=== PATIENT | male | born 1960 | race Caucasian/White ===

== ENCOUNTER 2017-05-07 11:04 | Inpatient (IN) | payer MEDICARE ==
[~2017-05-07] VITALS: Ht 172.7 cm; Wt 85.5 kg
[~2017-05-07 11:04] MED LIST: ACE3 PO; ADV250/50 INH; NO MEDS; PEN250 PO; PRE20 PO
--- NOTE | 2017-05-07 11:18 | ER Report ---
History and Physical Time Seen By MD: 11:17 Hx. of Stated Complaint: PATIENT STATES THAT HIS LEGS AND BELLY HAVE BECOME INCREASINGLY SWOLLEN HPI/ROS CHIEF COMPLAINT: Swelling of abdomen and jaundice. HISTORY OF PRESENT ILLNESS: 56-year-old male patient presents to emergency room with complaint of swelling in his abdomen, and jaundice. Patient states that he has been 4 weeks. He states that he does have a history of drinking significant amounts of alcohol. He states typically he's been drinking approximately a pint of whiskey a day. He states that when he noticed that he was jaundiced he decrease that to 1/2 pint of whiskey a day. He states is also no significant amounts swelling to his abdomen as well as his lower legs. Patient states that he has been in the hospital previously for the same condition, at that time he spent approximately one week in the hospital. Patient states that he has tried singular from alcohol but states it is very difficult was unable to. Patient states these have some diarrhea. He denies having any nausea, vomiting. He states that he has been drinking less due to the swelling but has noted that his urine is decreased as well. REVIEW OF SYSTEMS: Respiratory: No cough, no dyspnea. Cardiovascular: No chest pain, no palpitations. Gastrointestinal: As noted above Musculoskeletal: No back pain. Allergies: Coded Allergies: No Known Drug Allergies (Verified , 05/07/17) Home Meds Reported Medications Vit D3/Folic Acid/B2/B6/B12 (FOLGARD TABLET) 1 Each Tablet, 2000 UNIT PO 05/07/17 Vit B Complex 100 Cmb #2/Herbs (SM NATURAL BALANCED B-100 TAB) 100 Mg Tablet, 100 MG PO 05/07/17 Vit B Cmplx & C#11/Ca/Dha/Q10 (BRAIN FHZTI-KIM-SQ Q10 TABLET) 1 Each Tablet, 1 EACH PO 05/07/17 Aspirin (ASPIR 81) 81 Mg Tablet.dr, 81 MG PO QDAY, TAB 05/07/17 Metoprolol Succinate (METOPROLOL SUCCINATE) 50 Mg Tab.er.24h, 100 TAB PO QDAY, TAB 05/07/17 Lisinopril (LISINOPRIL) 20 Mg Tablet, 20 MG PO QDAY, TAB 05/07/17 Furosemide (FUROSEMIDE) 20 Mg Tablet, 1 TAB PO DAILY, TAB 05/07/17 Levothyroxine Sodium (LEVOTHYROXINE SODIUM) 25 Mcg Tablet, 25 MCG PO QDAY 05/07/17 Pantoprazole Sodium (PANTOPRAZOLE SODIUM) 40 Mg Tablet.dr, 40 MG PO QDAY, TAB.SR 05/07/17 Spironolactone (SPIRONOLACTONE) 25 Mg Tablet, 25 MG PO DAILY, TAB 05/07/17 Salmeterol Xinaf/Fluticasone (Advair 250/50 Diskus) 250 Mcg/50 Mcg Inh, 1 PUFF INH BID 1 PUFF 06/26/11 Past Medical/Surgical History Patient has a past medical history of hyperlipidemia, enlarged heart, reflux, liver disease, hypothyroidism, A. fib, dermatitis, alcohol use. Patient has surgical history of pacemaker, appendectomy. Reviewed Nurses Notes: Yes Hx Smoking: Yes (12-34PPD) Hx Substance Use Disorder: No Hx Alcohol Use: Yes (OCCASIONALLY) Constitutional Vital Sign - Last 24 Hours 05/07/17 05/07/17 05/07/17 05/07/17 11:04 11:09 11:13 11:30 Temp 98.1 Pulse ??? 79 Resp 19 B/P (MAP) 116/78 (91) 116/78 111/69 (83) Pulse Ox 96 O2 Delivery Room Air 05/07/17 05/07/17 05/07/17 05/07/17 11:34 11:39 12:00 12:09 Pulse 81 79 85 Resp 17 18 14 B/P (MAP) 91/55 (67) Pulse Ox 94 95 96 05/07/17 05/07/17 05/07/17 05/07/17 12:30 12:39 13:00 13:09 Pulse 82 78 Resp 14 16 B/P (MAP) 96/58 (71) 86/76 (79) Pulse Ox 94 92 05/07/17 13:14 Pulse 81 Resp 28 Pulse Ox 94 Physical Exam General Appearance: The patient is alert, has no immediate need for airway protection and no current signs of toxicity. ENT: Tympanic membranes are pearly-ramirez, auditory canals are patent, mixed mucous membranes are moist. Patient is jaundiced in the sclera of his eye, as well as mucous membranes. Respiratory: Chest is non tender, lungs are clear to auscultation. Cardiac: regular rate and rhythm Gastrointestinal: Abdomen is distended, firm in the bilateral lower quadrants and non tender, no masses, bowel sounds normal. Musculoskeletal: Neck: Neck is supple and non tender. Extremities have full range of motion and are non tender. Skin: No rashes or lesions. Patient is obviously jaundiced most notably around his eyes, and in his mouth. DIFFERENTIAL DIAGNOSIS: After history and physical exam differential diagnosis was considered for alcoholic induced cirrhosis, liver failure, hepatorenal syndrome. Medical Decision Making Data Points Result Diagram: 05/07/17 1208 05/07/17 1130 Laboratory Hematology Test 05/07/17 11:30 05/07/17 12:08 05/07/17 13:21 Sodium Level 133 mmol/L (137-145) Potassium Level 4.3 mmol/L (3.5-5.0) Chloride Level 102 mmol/L (98-107) Carbon Dioxide Level 21 mmol/L (22-30) Blood Urea Nitrogen 22 mg/dl (9-21) Creatinine 1.00 mg/dl (0.66-1.25) Glomerular Filtration Rate Calc > 60.0 Random Glucose 99 mg/dl (75-110) Calcium Level 8.7 mg/dl (8.4-10.2) Total Bilirubin 22.0 mg/dl (0.2-1.3) Aspartate Amino Transf (AST/SGOT) 185 U/L (0-35) Alanine Aminotransferase (ALT/SGPT) 92 U/L (0-56) Alkaline Phosphatase 399 U/L (0-126) Troponin I < 0.012 ng/ml Total Protein 7.8 gm/dl (6.3-8.2) Albumin 3.1 g/dl (3.5-5.0) Red Blood Count 3.78 M/uL (4.00-5.60) Mean Corpuscular Volume 104.6 fL (80.0-96.0) Mean Corpuscular Hemoglobin 36.0 pg (26.0-33.0) Mean Corpuscular Hemoglobin Concent 34.5 g/dL (32.0-36.0) Red Cell Distribution Width 14.5 % (11.5-14.5) Mean Platelet Volume 8.4 fL (7.2-11.1) Neutrophils (%) (Auto) 69.5 % (39.4-72.5) Lymphocytes (%) (Auto) 18.3 % (17.6-49.6) Monocytes (%) (Auto) 11.1 % (4.1-12.4) Eosinophils (%) (Auto) 0.5 % (0.4-6.7) Basophils (%) (Auto) 0.6 % (0.3-1.4) Nucleated RBC Relative Count (auto) 0.0 /100WBC Neutrophils # (Auto) 7.0 K/uL (2.0-7.4) Lymphocytes # (Auto) 1.8 K/uL (1.3-3.6) Monocytes # (Auto) 1.1 K/uL (0.3-1.0) Eosinophils # (Auto) 0.0 K/uL (0.0-0.5) Basophils # (Auto) 0.1 K/uL (0.0-0.1) Nucleated RBC Absolute Count (auto) 0.00 K/uL Peripheral Blood Smear Yes Y/N B-Type Natriuretic Peptide 142 pg/ml (0-100) Ammonia 34 UMOL/L (9-33) Chemistry Test 05/07/17 11:30 05/07/17 12:08 05/07/17 13:21 Glomerular Filtration Rate Calc > 60.0 Calcium Level 8.7 mg/dl (8.4-10.2) Total Bilirubin 22.0 mg/dl (0.2-1.3) Aspartate Amino Transf (AST/SGOT) 185 U/L (0-35) Alanine Aminotransferase (ALT/SGPT) 92 U/L (0-56) Alkaline Phosphatase 399 U/L (0-126) Troponin I < 0.012 ng/ml Total Protein 7.8 gm/dl (6.3-8.2) Albumin 3.1 g/dl (3.5-5.0) White Blood Count 10.1 k/uL (4.5-11.0) Red Blood Count 3.78 M/uL (4.00-5.60) Hemoglobin 13.6 g/dL (14.0-18.0) Hematocrit 39.6 % (42.0-52.0) Mean Corpuscular Volume 104.6 fL (80.0-96.0) Mean Corpuscular Hemoglobin 36.0 pg (26.0-33.0) Mean Corpuscular Hemoglobin Concent 34.5 g/dL (32.0-36.0) Red Cell Distribution Width 14.5 % (11.5-14.5) Platelet Count 90 K/uL (150-450) Mean Platelet Volume 8.4 fL (7.2-11.1) Neutrophils (%) (Auto) 69.5 % (39.4-72.5) Lymphocytes (%) (Auto) 18.3 % (17.6-49.6) Monocytes (%) (Auto) 11.1 % (4.1-12.4) Eosinophils (%) (Auto) 0.5 % (0.4-6.7) Basophils (%) (Auto) 0.6 % (0.3-1.4) Nucleated RBC Relative Count (auto) 0.0 /100WBC Neutrophils # (Auto) 7.0 K/uL (2.0-7.4) Lymphocytes # (Auto) 1.8 K/uL (1.3-3.6) Monocytes # (Auto) 1.1 K/uL (0.3-1.0) Eosinophils # (Auto) 0.0 K/uL (0.0-0.5) Basophils # (Auto) 0.1 K/uL (0.0-0.1) Nucleated RBC Absolute Count (auto) 0.00 K/uL Peripheral Blood Smear Yes Y/N B-Type Natriuretic Peptide 142 pg/ml (0-100) Ammonia 34 UMOL/L (9-33) EKG/Imaging EKG Interpretation 12 lead EKG: Rhythm: normal sinus rhythm with a ventricular rate of 79 bpm. [place]: Right axis deviation QRS: Left bundle branch block ST segments: normal Imaging Examination: CHEST PA AND LAT Comparison: None. History: swelling Findings: Pacemaker/AICD. Cardiac silhouette size is within normal limits. No consolidation or nodule. No pneumothorax, edema, or effusion. Osseous structures are intact. IMPRESSION: No evidence of acute cardiopulmonary disease. Report Dictated By: Kevin Lima MD at 05/07/2017 12:44 PM Report E-Signed By: Kevin Lima MD at 05/07/2017 12:45 PM ED Course/Re-evaluation ED Course Patient was admitted to exam room, history of physical or obtained. Differential diagnoses were considered. On examination patient is jaundiced with distended abdomen. A CBC, CMP, EKG, troponin, chest x-ray were done. Patient had an elevated bilirubin of 22, CBC was unremarkable except for MCV was 104, AST was 152. Chest x-ray, troponin were unremarkable. EKG showed a normal sinus rhythm with a left bundle branch block. I discussed case with Dr. Grimes, hospitalist, who agreed to accept the patient for admission. I discussed this patient who verbalized understanding and agreement. Patient was given normal saline and tolerated well. I did ask the patient and his last drink was, he stated that was this morning with his medication. Ammonia was done and it was 34. Decision to Disposition Date: May 07, 2017 Decision to Disposition Time: 13:17 Depart Departure Latest Vital Signs Vital Signs Date Time Temp Pulse Resp B/P (MAP) Pulse Ox O2 Delivery O2 Flow Rate FiO2 05/07/17 13:14 81 28 94 05/07/17 13:00 86/76 (79) 05/07/17 11:13 98.1 Room Air Impression: Primary Impression: Alcoholic cirrhosis of liver Additional Impression: Jaundice Condition: Improved Disposition: Admitted from ER Problem Qualifiers Primary Impression: Alcoholic cirrhosis of liver Ascites presence: with ascites Qualified Codes: K70.31 - Alcoholic cirrhosis of liver with ascites RAQUEL SCHOFIELD May 07, 2017 11:18
[2017-05-07] MEDS ORDERED: FURO-45 PO (11:28)
[2017-05-07] MEDS ORDERED: VIT1TABL PO (11:28)
[2017-05-07] MEDS ORDERED: VIT1TABL4 PO (11:28)
[2017-05-07] MEDS ORDERED: METO50TA19 PO (11:28)
[2017-05-07] MEDS ORDERED: PANT40TA65 PO (11:28)
[2017-05-07] MEDS ORDERED: [UNRECOGNIZED DRUG - CODE] PO (11:28)
[2017-05-07] MEDS ORDERED: SPIR25TA78 PO (11:28)
[2017-05-07] MEDS ORDERED: LEVO25TA61 PO (11:28)
[2017-05-07] MEDS ORDERED: LISI20TA29 PO (11:28)
[2017-05-07] MEDS ORDERED: ASPI-1471 PO (11:28)
--- NOTE | 2017-05-07 11:48 | EKG ---
FACILITY: [facility] - [place] PATIENT NAME: AMANDA BROWN : [id number] MR: [id number] V: [id number] EXAM DATE: ORDERING PHYSICIAN: RAQUEL SCHOFIELD TECHNOLOGIST: Test Reason : Blood Pressure : / mmHG Vent. Rate : 079 BPM Atrial Rate : 079 BPM P-R Int : 170 ms QRS Dur : 142 ms QT Int : 448 ms P-R-T Axes : 005 092 016 degrees QTc Int : 513 ms Normal sinus rhythm Rightward axis Left bundle branch block Abnormal ECG Confirmed by BESSY HERNANDEZ ([id number]) on 05/09/2017 2:56:56 PM Referred By: Confirmed By:BESSY HERNANDEZ
[2017-05-07 12:14] LABS: PLATELET COUNT, AUTOMATED 90 K/uL (150-450)
--- NOTE | 2017-05-07 12:50 | RADIOLOGY IMAGING REPORT ---
FACILITY: [facility] PATIENT NAME: Manuel Peters : 1960 MR: [id number] V: [id number] EXAM DATE: ORDERING PHYSICIAN: RAQUEL SCHOFIELD TECHNOLOGIST: Location: [facility] Patient: Manuel Peters : 1960 Visit/Account:[id number] Date of Sevice: 05/07/2017 Examination: CHEST PA AND LAT Comparison: None. History: swelling Findings: Pacemaker/AICD. Cardiac silhouette size is within normal limits. No consolidation or nodule . No pneumothorax, edema, or effusion. Osseous structures are intact. IMPRESSION: No evidence of acute cardiopulmonary disease. Report Dictated By: Kevin Lima MD at 05/07/2017 12:44 PM Report E-Signed By: Kevin Lima MD at 05/07/2017 12:45 PM [id number]
[2017-05-07 14:24] VITALS: BP 104/58
[2017-05-07] MEDS ORDERED: IBUPROFEN 200 MG TAB PO PRN (16:25)
[2017-05-07] MEDS ORDERED: ONDANSETRON 4 MG/2 ML VIAL IVP PRN (16:25)
[2017-05-07] MEDS ORDERED: FLUSH 10 ML SYR IVP PRN (16:25)
[2017-05-07 16:39] LABS: INR 1.66
[2017-05-07] MEDS ORDERED: NS(*) 0.9% 1000 ML BAG 1,000 ML ONE (17:48)
--- NOTE | 2017-05-07 18:33 | Procedure Note ---
Paracentesis Procedure Note Reason for Paracentesis: Ascites Consent Signed: Yes Paracentesis Location: RLQ U/S Guided Paracentesis: Yes Blood Loss: Minimal Complications: None Anesthesia Used: Other (2% Lidocaine) CC's of Anesthesia: 10 Amount of Fluid - cc's: 6000 Fluid Characteristics: Serous Lab Analysis Ordered: No (discussed with Dr. Grimes) Comment Pre-procedure INR 1.66 noted. Decision to continue with procedure with slight increased risk of bleeding. NIBP monitored with RN in room throughout the procedure. PATITO SHELDON MD May 07, 2017 18:33
[2017-05-07 19:00] VITALS: BP 104/53
[2017-05-07] MEDS: LACTULOSE 10 GM/15 ML UDCUP PO SCH (19:23)
[2017-05-07 20:00] VITALS: BP 94/52
[2017-05-07 20:35] VITALS: Ht 172.7 cm; Wt 85.5 kg
[2017-05-07 20:42] VITALS: BP 102/60
--- NOTE | 2017-05-07 20:49 | Medical Nutrition Therapy ---
Nutrition Anthropometrics Height (Inches): 68.00 Height (Calculated Centimeters: 172.861031 Weight (Pounds): 202 Weight (Calculated Kilograms): 91.626 BMI Calculated: 30.71 Michael Nutrition Score: Adequate Michael Nutrition Risk Score: 17 Dietary Referral Nutrition Risk Factors: Nutrition Risk Comment: Physical Findings Physical Appearance: Obese BMI 30-39 Skin Appearance Skin Appearance: Edema Edema Location Modifier: Both Edema Location: ABDOMINAL Type of Edema: Degree of Edema: 3+ Gastrointestinal Symptoms GI Symtoms: Diarrhea Tube Present: Bowel Sounds: Recent Bowel Pattern: Diarrhea Stool Characteristics: Nutrition/Food History Alcohol Use: Currently Amount of Alcohol Used: 1 pint whiskey/day Nutritional Diagnosis Nutritional Risk Acuity 2: Liver Cirrhosis Nutritional Risk Acuity 3: Alcohol abuse Past Medical History: hyperlipidemia, enlarged heart, reflux, liver disease, hypothyroidism, A. fib, dermatitis, alcohol use, pacemaker, appendectomy. Nutritional Acuity: 2-Moderate Nutrition Diagnosis: Excessive Alcohol Intake Nutrition Problem/Etiology/Sym: Excessive Alcohol Intake related to Alcohol addiction AEB diagnosis of liver disease and reports of patient's daily alcohol intake of 1 pint whiskey. Energy Requirement: 2400 ([place] Jeor: Actual BW X 1.5) Protein Requirement: 73 (Actual BW Kg X .8) Diet Type: 2 Gram Sodium (NA), Low Cholesterol & Sat Fat Nutrition Intervention: Cont diet as ordered Drug: Diuretics Nutrition Monitoring & Eval Nutrition Goals: Eat 75-100% Meal RD Patient Assessment Time: [address] Assessment Type: RD Assessment Patient Nutrition Acuity: 2-Moderate Follow Up Date: May 09, 2017 Nutritional Comment: Pt admitted for Alcoholic cirrhosis of liver and jaundice. Class I obesity with BMI of 30.7. Pt admitted with ascites, as this condition resolves wt is expected to decrease. Low H/H, Alb 3.1, BNP 142, Ammonia 34, Total Bilirubin 22.0, High AST/ALT/ALK Phos. Receiving Low chol, Low Sat Fat, 2 gr Na+ diet with no reports of intake. Follow diet tolerance, labs, wt. etc. KESHAV LATHAM May 07, 2017 20:49
--- NOTE | 2017-05-07 20:53 | History & Physical ---
History of Present Illness Chief Complaint Worsening swelling of his abdomen and legs History of Present Illness Mr. Peters is 56-year-old male patient presents to emergency room with complaint of swelling in his abdomen, and jaundice. Patient stated that he has been having this for the last 4 weeks. He stated that he did have a history of drinking significant amounts of alcohol. He stated typically he's been drinking approximately a pint of whiskey a day. He stated that when he noticed that he was jaundiced he decrease that to 1/2 pint of whiskey a day. He stated he also noticed significant amounts swelling to his abdomen as well as his lower legs. Patient stated that he has been in the hospital previously for the same condition, at that time he spent approximately one week in the hospital. Patient stated that he has tried stopping from alcohol but stated it was very difficult and unable to stop it. Patient stated he had some diarrhea. He denied having any nausea, vomiting. He stated that he has been drinking less due to the swelling but has noted that his urine is decreased as well. During the ER evaluation differential diagnoses were considered. On examination patient was jaundiced with distended abdomen. A CBC, CMP, EKG, troponin, chest x -ray were done. Patient had an elevated bilirubin of 22, CBC was unremarkable except for MCV was 104, AST was 152. Chest x-ray, troponin were unremarkable. EKG showed a normal sinus rhythm with a left bundle branch block. These findings were discussed with the patient by the ER-MD and pt. verbalized understanding and agreement. Patient was given normal saline and tolerated well. His last alcohol drink was yesterday. His Ammonia was done and it was 34. I discussed the case with the ER-MD and admitted the patient for further evaluation and management. I also discussed the case with the surgeon, and requested Paracethesis and he aspirated almost 6L of ascitic fluid. Patient tolerated the procedure well. Patient felt better. History Home Meds Reported Medications Vit D3/Folic Acid/B2/B6/B12 (FOLGARD TABLET) 1 Each Tablet, 2000 UNIT PO 05/07/17 Vit B Complex 100 Cmb #2/Herbs (SM NATURAL BALANCED B-100 TAB) 100 Mg Tablet, 100 MG PO 05/07/17 Vit B Cmplx & C#11/Ca/Dha/Q10 (BRAIN CJDGG-EIP-YD Q10 TABLET) 1 Each Tablet, 1 EACH PO 12/29/17 Aspirin (ASPIR 81) 81 Mg Tablet.dr, 81 MG PO QDAY, TAB 05/07/17 Metoprolol Succinate (METOPROLOL SUCCINATE) 50 Mg Tab.er.24h, 100 TAB PO QDAY, TAB 05/07/17 Lisinopril (LISINOPRIL) 20 Mg Tablet, 20 MG PO QDAY, TAB 05/07/17 Furosemide (FUROSEMIDE) 20 Mg Tablet, 1 TAB PO DAILY, TAB 05/07/17 Levothyroxine Sodium (LEVOTHYROXINE SODIUM) 25 Mcg Tablet, 25 MCG PO QDAY 05/07/17 Pantoprazole Sodium (PANTOPRAZOLE SODIUM) 40 Mg Tablet.dr, 40 MG PO QDAY, TAB.SR 05/07/17 Spironolactone (SPIRONOLACTONE) 25 Mg Tablet, 25 MG PO DAILY, TAB 05/07/17 Salmeterol Xinaf/Fluticasone (Advair 250/50 Diskus) 250 Mcg/50 Mcg Inh, 1 PUFF INH BID 1 PUFF 06/26/11 Allergies: Coded Allergies: No Known Drug Allergies (Verified , 05/07/17) Hx Smoking: Yes (05/11-07/11PPD) Hx Alcohol Use: Yes Alcohol Used: Liquor Alcohol Withdrawl Symptoms: Tremors Hx Substance Use Disorder: No Social Drug Use: Former Review of Systems Constitutional: Weight Gain, No Fever, No Weight Loss, No Chills Neurological: Weakness, No Syncope, No Confusion, No Dizziness Eyes: Other (Jaundice), No Vision Change ENT: No Sinus Congestion, No Sore Throat Cardiovascular: No Chest Pain, No Palpitations Respiratory: Shortness of Breath, No Cough, No Wheezing Gastrointestinal: Nausea, No Vomiting, Diarrhea, No Dysphagia, No Constipation , No Early Satiety, No Hematemesis, No Hematochezia, No Melena, Abdominal Pain Genitourinary: Dysuria, No Hematuria Musculoskeletal: No Pain, No Sprain, No Strain Psychiatric: Depression, No Anxiety Exam Vital Signs Vital Signs Date Time Temp Pulse Resp B/P (MAP) Pulse Ox O2 Delivery O2 Flow Rate FiO2 05/07/17 19:45 95 Room Air 05/07/17 14:24 99.2 77 20 104/58 (73) General Appearance: Alert, Awake, Afebrile, Other (moderate abdominal distension) Neuro: No Gross deficits Eyes: PERRLA (icteric sclera) ENT: Other (dry oral mucosa) Neck: No Masses Cardiovascular: Normal Rhythm & Peripheral Pulses Respiratory: No Respiratory Distress Chest: No Masses GI: Other (distended abdomenwith ascites) : Normal Extremities: Soft and Non Tender, Edema Integumentary: Jaundice, Pallor Psych: Alert & Oriented X3, Other (seems depressed) Medical Decision Making Data Points Result Diagram: 05/07/17 1208 05/07/17 1130 EKG / Imaging Imaging reviewed Pre-Admit Course ED Medications reviewed Medical Record Review: Yes Assessment and Plan Problems: (1) Alcoholic cirrhosis of liver Status: Acute Assessment & Plan: Patient has Alcoholic related Liver Disease. He has generalized anasarca and large ascites. Surgical consult obtained by Dr. Bateman and paracenthesis was performed and 6L ascitic fluid was removed. Patient tolerated. I will watch his hemodynamics and hold Lasix for now. I will get U/A for his dysuria and frequency. I will start Lasix and Aldactone in am after stabilizing his BP. I will use Lactulose 30ml po q12h for his high Bilirubin. (2) Fluid overload Status: Acute Assessment & Plan: He underwent paracethesis and 6L was removed. I will start Lasix and Aldactone in am for his LE edema. I will get morning blood work. I will managemhis other medical issues accordingly and resume his home medications. For DVT his INR is 1.6 and he is on ASA 81mg Central Venous Access Medical Necessity for Access: Hemodynamic Monitoring, IV Access, Medication Administration Condition guarded Time Spent on Plan of Care: > 30 min Consult Surgery Copies to: DARRELL CUNNINGHAM MD Venous Thromboembolism VTE Risk Physician Assess for VTE Risk: Yes Patient's VTE Risk: Low VTE Diagnostic Test 2 Days Prior to Admit: No Antithrombotics Is Pt On Any Antithrombotics?: No Exam Sepsis Risk: No Definite Risk Problem Qualifiers (1) Alcoholic cirrhosis of liver: Ascites presence: with ascites Qualified Codes: K70.31 - Alcoholic cirrhosis of liver with ascites RENA FOURNIER MD May 07, 2017 20:53
[2017-05-07] MEDS: FUROSEMIDE 40 MG/4 ML VIAL IVP SCH (21:00)
--- NOTE | 2017-05-07 21:00 | RADIOLOGY IMAGING REPORT ---
FACILITY: [facility] [place] PATIENT NAME: Manuel Peters : 1960 MR: [id number] V: [id number] EXAM DATE: ORDERING PHYSICIAN: RENA FOURNIER TECHNOLOGIST: Location: [facility] [place] Patient: Manuel Peters : 1960 Visit/Account:[id number] Date of Sevice: 05/07/2017 US GUIDANCE FOR THORA/PARA History: Abdominal distention COMPARISON: None Findings: Limited ultrasound of the abdomen demonstrates moderate ascites. Images were obtained for g uidance performed by the primary clinical service. IMPRESSION: Ultrasound images obtained for guidance for paracentesis. Report Dictated By: Max Flores MD at 05/07/2017 8:55 PM Report E-Signed By: Max Flores MD at 05/07/2017 8:56 PM [id number]
[2017-05-07] MEDS ORDERED: NS(*) 0.9% 1000 ML BAG 1,000 ML IV PRN (22:20)
[2017-05-07 22:46] VITALS: BP 109/64
[2017-05-08] VITALS (10 sets, daily range): BP systolic 80–125; BP diastolic 31–89
[2017-05-08] MEDS: LACTULOSE 10 GM/15 ML UDCUP PO SCH ×3 (01:19→14:23)
[2017-05-08] MEDS: LEVOTHYROXINE SOD 0.025 MG TAB PO SCH (05:35)
[2017-05-08] MEDS: FUROSEMIDE 40 MG/4 ML VIAL IVP SCH ×2 (07:06→21:59)
[2017-05-08] MEDS: SPIRONOLACTONE 25 MG TAB PO SCH (07:07)
[2017-05-08] MEDS: METOPROLOL SUCC XL 50 MG TABCR 50 MG TAB.ER.24H PO SCH (07:07)
[2017-05-08 07:13] LABS: PLATELET COUNT, AUTOMATED 70 K/uL (150-450)
[2017-05-08] MEDS: PANTOPRAZOLE SOD 40 MG TABEC PO SCH (09:56)
[2017-05-08] MEDS: ASPIRIN 81 MG CHEW CHEW SCH (09:56)
[2017-05-08] MEDS ORDERED: METO200T12 PO (11:58)
--- NOTE | 2017-05-08 20:16 | Hospitalist Progress Note ---
Subjective Progress Notes Subjective Mr. Peters is 56-year-old male patient presents to emergency room with complaint of swelling in his abdomen, and jaundice. Patient stated that he has been having this for the last 4 weeks. He stated that he did have a history of drinking significant amounts of alcohol. He stated typically he's been drinking approximately a pint of whiskey a day. He stated that when he noticed that he was jaundiced he decrease that to 1/2 pint of whiskey a day. He stated he also noticed significant amounts swelling to his abdomen as well as his lower legs. Patient stated that he has been in the hospital previously for the same condition, at that time he spent approximately one week in the hospital. Patient stated that he has tried stopping from alcohol but stated it was very difficult and unable to stop it. Patient stated he had some diarrhea. He denied having any nausea, vomiting. He stated that he has been drinking less due to the swelling but has noted that his urine is decreased as well. During the ER evaluation differential diagnoses were considered. On examination patient was jaundiced with distended abdomen. A CBC, CMP, EKG, troponin, chest x -ray were done. Patient had an elevated bilirubin of 22, CBC was unremarkable except for MCV was 104, AST was 152. Chest x-ray, troponin were unremarkable. EKG showed a normal sinus rhythm with a left bundle branch block. These findings were discussed with the patient by the ER-MD and pt. verbalized understanding and agreement. Patient was given normal saline and tolerated well. His last alcohol drink was yesterday. His Ammonia was done and it was 34. I discussed the case with the ER-MD and admitted the patient for further evaluation and management. I also discussed the case with the surgeon, and requested Paracethesis and he aspirated almost 6L of ascitic fluid. Patient tolerated the procedure well. Patient felt better. 05/08: Patient is feeling better and has better appetite. He is still very jaundiced. He required IVF due to his low BP. His PLT. are 70K and his LFT's are still high. Patient Complains of: Neurological: Weakness, No: Confusion, Dizziness Cardiovascular: No: Chest Pain, Palpitations Respiratory: Shortness of Breath, No: Cough, Congestion, Wheezing Gastrointestinal: No Nausea, No Vomiting Genitourinary: No Dysuria, No Hematuria Musculoskeletal: No: Pain, Sprain Physical Exam Vital Signs Date Time Temp Pulse Resp B/P (MAP) Pulse Ox O2 Delivery O2 Flow Rate FiO2 05/08/17 19:57 98.8 88 20 125/59 (81) 93 Room Air Intake and Output 05/09/17 07:00 Intake Total 2918 ml Balance 2918 ml Intake Oral 1600 ml IV Total 1318 ml # Voids 1 # Bowel Movements 2 General Appearance: Alert, Awake, No Acute Distress, Afebrile Neuro: No Gross deficits Eyes: Other (Icteric sclera) ENT: Normal Cardiovascular: Normal Rhythm & Peripheral Pulses Respiratory: No Respiratory Distress GI: Other (distended abdomen but not tender) Extremities: Edema Psych: Alert & Oriented X3, Appropriate Mood & Affect Result Diagram: 05/08/17 0633 05/08/17 0702 Assessment and Plan Problems: (1) Alcoholic cirrhosis of liver Status: Acute Assessment & Plan: Patient has Alcoholic related Liver Disease. He has generalized anasarca and large ascites. Surgical consult obtained by Dr. Bateman and paracenthesis was performed and 6L ascitic fluid was removed. Patient tolerated. I will watch his hemodynamics and hold Lasix for now. I will get U/A for his dysuria and frequency. I will start Lasix and Aldactone in am after stabilizing his BP. I will use Lactulose 30ml po q12h for his high Bilirubin. 05/08: I will continue his current management and possible d/c in am and f/u with PCP. (2) Fluid overload Status: Acute Assessment & Plan: He underwent paracethesis and 6L was removed. I will start Lasix and Aldactone in am for his LE edema. I will get morning blood work. I will managemhis other medical issues accordingly and resume his home medications. For DVT his INR is 1.6 and he is on ASA 81mg 05/08: We able to remove 6L from his belly and he feels better. He is doing better and he can go home in am. Central Venous Access Medical Necessity for Access: Hemodynamic Monitoring, IV Access, Medication Administration Time Spent on Plan of Care: < 30 min Copies to: DARRELL CUNNINGHAM MD Exam Sepsis Risk: No Definite Risk Problem Qualifiers (1) Alcoholic cirrhosis of liver: Ascites presence: with ascites Qualified Codes: K70.31 - Alcoholic cirrhosis of liver with ascites RENA FOURNIER MD May 08, 2017 20:16
[2017-05-08] MEDS ORDERED: DIAZEPAM 10 MG TAB PO PRN ×2 (20:20)
[2017-05-09 02:12] VITALS: BP 124/49
[2017-05-09] MEDS: LEVOTHYROXINE SOD 0.025 MG TAB PO SCH (05:13)
[2017-05-09 07:42] VITALS: BP 135/78
[2017-05-09] MEDS: SPIRONOLACTONE 25 MG TAB PO SCH (07:50)
[2017-05-09] MEDS: PANTOPRAZOLE SOD 40 MG TABEC PO SCH (07:50)
[2017-05-09] MEDS: FUROSEMIDE 40 MG/4 ML VIAL IVP SCH ×2 (07:50→20:50)
[2017-05-09] MEDS: ASPIRIN 81 MG CHEW CHEW SCH (07:50)
[2017-05-09] MEDS: METOPROLOL SUCC XL 50 MG TABCR 50 MG TAB.ER.24H PO SCH (07:50)
--- NOTE | 2017-05-09 10:19 | Medical Nutrition Therapy ---
Nutrition Anthropometrics Height (Inches): 68.00 Height (Calculated Centimeters: 172.373222 Weight (Pounds): 202 Weight (Calculated Kilograms): 91.626 BMI Calculated: 30.71 Michael Nutrition Score: Adequate Michael Nutrition Risk Score: 17 Dietary Referral Nutrition Risk Factors: Nutrition Risk Comment: Physical Findings Physical Appearance: Obese BMI 30-39 Skin Appearance Skin Appearance: Edema Edema Location Modifier: Both Edema Location: Lower Extremity Type of Edema: Degree of Edema: 3+ Gastrointestinal Symptoms GI Symtoms: Diarrhea Tube Present: Bowel Sounds: Recent Bowel Pattern: Diarrhea Stool Characteristics: Nutrition/Food History Decreased Appetite Improving Nutritional Diagnosis Nutritional Risk Acuity 2: Liver Cirrhosis Nutritional Risk Acuity 3: Fair Appetite, Alcohol abuse Past Medical History: hyperlipidemia, enlarged heart, reflux, liver disease, hypothyroidism, A. fib, dermatitis, alcohol use, pacemaker, appendectomy. Nutritional Acuity: 2-Moderate Nutrition Diagnosis: Excessive Alcohol Intake Nutrition Problem/Etiology/Sym: Excessive Alcohol Intake related to Alcohol addiction AEB diagnosis of liver disease and reports of patient's daily alcohol intake of 1 pint whiskey. Energy Requirement: 2400 ([place]-St Jeor: Actual BW X 1.5) Protein Requirement: 73 (Actual BW Kg X .8) Diet Type: 2 Gram Sodium (NA), Low Cholesterol & Sat Fat Nutrition Intervention: Cont diet as ordered Drug: Diuretics Nutrition Monitoring & Eval Nutrition Goals: Eat 75-100% Meal RD Patient Assessment Time: [address] Assessment Type: RD Re-Assessment Patient Nutrition Acuity: 2-Moderate Follow Up Date: May 11, 2017 Nutritional Comment: Pt admitted for Alcoholic cirrhosis of liver and jaundice. Class I obesity with BMI of 30.7. Pt admitted with ascites, as this condition resolves wt is expected to decrease. Low H/H, Alb 3.1, BNP 142, Ammonia 34, Total Bilirubin 22.0, High AST/ALT/ALK Phos. Receiving Low chol, Low Sat Fat, 2 gr Na+ diet with no reports of intake. Follow diet tolerance, labs, wt. etc. 05/09 Alb 2.2, Ammonia 87, High LFT but improving. Pt consuming diet 25-75% and states that his appetite his improving. Follow labs, intake, etc. KESHAV LATHAM May 09, 2017 10:19
[2017-05-09] MEDS: LACTULOSE 10 GM/15 ML UDCUP PO SCH ×2 (11:48→17:59)
[2017-05-09 11:49] VITALS: BP 142/75
[2017-05-09] MEDS: CEPHALEXIN MONO 500 MG CAP PO SCH ×3 (13:15→20:50)
[2017-05-09] MEDS ORDERED: THIAMINE HCL 100 MG TAB PO ONE (13:35)
--- NOTE | 2017-05-09 13:37 | Hospitalist Progress Note ---
Subjective Progress Notes Subjective This patient was admitted for ascites and hepatic failure. He had no acute changes overnight. Patient Complains of: Cardiovascular: No: Chest Pain Respiratory: No: Shortness of Breath Physical Exam Vital Signs Date Time Temp Pulse Resp B/P (MAP) Pulse Ox O2 Delivery O2 Flow Rate FiO2 05/09/17 11:49 97.7 94 20 142/75 (97) 96 Room Air 93 Intake and Output 05/10/17 07:00 Intake Total 360 ml Output Total 2 ml Balance 358 ml Intake Oral 360 ml Output Urine Total 1 ml Stool Total 1 ml # Voids 3 Neuro: Other (Tremors.) Eyes: PERRLA Cardiovascular: Regular Rate and Rhythm Respiratory: Clear to Auscultation GI: Other (Distended.) Integumentary: Jaundice Result Diagram: 05/08/17 0633 05/08/17 07 Item Value Date Time Ammonia 87 UMOL/L H 05/09/17 0605 Total Bilirubin 19.2 mg/dl *H 05/08/17 0702 Aspartate Amino Transf (AST/SGOT) 130 U/L H 05/08/17 0702 Alanine Aminotransferase (ALT/SGPT) 76 U/L H 05/08/17 0702 Alkaline Phosphatase 292 U/L H 05/08/17 0702 Assessment and Plan Problems: (1) Alcoholic cirrhosis of liver Status: Acute Assessment & Plan: He does have advanced cirrhosis. We have started him on lactulose for an elevated ammonia level. (2) Ascites Assessment & Plan: He underwent paracentesis with 6 liters removed on 05/07. He has already reaccumulated much of the fluid. He will likely need scheduled paracentesis after discharge. (3) Alcohol withdrawal Assessment & Plan: He is on CIWA protocol. Central Venous Access Medical Necessity for Access: Hemodynamic Monitoring, IV Access, Medication Administration Exam Sepsis Risk: No Definite Risk Problem Qualifiers (1) Alcoholic cirrhosis of liver: Ascites presence: with ascites Qualified Codes: K70.31 - Alcoholic cirrhosis of liver with ascites BESSY HERNANDEZ DO May 09, 2017 13:37
[2017-05-09 15:00] VITALS: BP 122/65
[2017-05-09 20:48] VITALS: BP 130/76
[2017-05-10] VITALS (7 sets, daily range): BP systolic 89–134; BP diastolic 55–81
[2017-05-10] MEDS: LACTULOSE 10 GM/15 ML UDCUP PO SCH ×3 (01:00→17:16)
[2017-05-10] MEDS: LEVOTHYROXINE SOD 0.025 MG TAB PO SCH (05:32)
[2017-05-10 07:16] LABS: PLATELET COUNT, AUTOMATED 80 K/uL (150-450)
[2017-05-10] MEDS: SPIRONOLACTONE 25 MG TAB PO SCH (08:37)
[2017-05-10] MEDS: METOPROLOL SUCC XL 50 MG TABCR 50 MG TAB.ER.24H PO SCH (10:23)
[2017-05-10] MEDS: PANTOPRAZOLE SOD 40 MG TABEC PO SCH (10:23)
[2017-05-10] MEDS: ASPIRIN 81 MG CHEW CHEW SCH (10:23)
[2017-05-10] MEDS: THIAMINE HCL 100 MG TAB PO SCH (10:23)
[2017-05-10] MEDS: CEPHALEXIN MONO 500 MG CAP PO SCH ×4 (10:23→20:58)
[2017-05-10] MEDS: FUROSEMIDE 40 MG/4 ML VIAL IVP SCH ×2 (10:24→20:58)
--- NOTE | 2017-05-10 19:19 | Hospitalist Progress Note ---
Subjective Progress Notes Subjective The patient states his abdomen is becoming tight again. Physical Exam Vital Signs Date Time Temp Pulse Resp B/P (MAP) Pulse Ox O2 Delivery O2 Flow Rate FiO2 05/10/17 16:37 98.4 78 20 120/67 (84) 97 Room Air Intake and Output 05/11/17 07:00 Intake Total 1820 ml Balance 1820 ml Intake Oral 1820 ml # Voids 4 # Bowel Movements 1 General Appearance: Alert, Awake, No Acute Distress, Afebrile Eyes: Other (Sclera are icteric.) Cardiovascular: Regular Rate and Rhythm Respiratory: Clear to Auscultation GI: Other (Distended, nontender.) Extremities: Warm, Perfused, Edema (2-3+ pitting edema, both LE.) Integumentary: Generalized Fragile Skin Psych: Appropriate Mood & Affect, Other (Poor insight into current illness.) Result Diagram: 05/10/1757 05/10/17 0657 Item Value Date Time Ammonia 62 UMOL/L H 05/10/17 0657 Thyroid Stimulating Hormone (TSH) 5.87 uIU/ml H 05/08/17 0633 Calcium Level 8.3 mg/dl L 05/10/17 0657 Total Bilirubin 18.9 mg/dl *H 05/10/17 0657 Aspartate Amino Transf (AST/SGOT) 123 U/L H 05/10/17 0657 Alanine Aminotransferase (ALT/SGPT) 80 U/L H 05/10/17 0657 Alkaline Phosphatase 299 U/L H 05/10/17 0657 Total Protein 6.7 gm/dl 05/10/17 0657 Albumin 2.6 g/dl L 05/10/17 0657 [facility] *LIVE* [address] [place] [address] CRISTIN REEDER M.D., DIRECTOR OF LABORATORY SERVICES BRUNO CHILDS M.D., PATHOLOGIST RUN DATE: 05/09/17 Specimen Inquiry Report PAGE 1 RUN TIME: 1123 PATIENT: AMANDA BROWN ACCT: [id number] LOC: MED U : [id number] AGE/SX: 56/M ROOM: 2275 REG : 05/07/[address]: RENA FOURNIER MD : [id number] BED: 275 DIS : STATUS: ADM IN TLOC: SPEC #: [id number] NAUN: 05/07/17 STATUS: COMP REQ #: [id number] RECD: 05/07/17 [facility] DR: RAQUEL SCHOFIELDP SOURCE: [facility] ENTR: 05/07/17-[address]: RENA FOURNIER MD SPDESC: ORDERED: CULT URINE Procedure Result Verified URINE CULTURE Final 05/09/17-1123 Organism 1 ESCHERICHIA COLI >100,000 COL/ML PREDOMINANT ORGANISM IN A MIXED CULTURE ESC COLI M.I.C. RX --------- --- AMPICILLIN <=2 S AMPICILLIN/SULBACTAM <=2 S CEFAZOLIN <=4 S CEFTAZIDIME <=1 S CEFTRIAXONE <=1 S CEFEPIME <=1 S CEFOXITIN <=4 S ERTAPENEM <=0.5 S CIPROFLOXACIN <=0.25 S GENTAMICIN <=1 S IMIPENEM <=0.25 S LEVOFLOXACIN <=0.12 S NITROFURANTOIN <=16 S PIPERACILLIN/TAZOBACTAM <=4 S TOBRAMYCIN <=1 S TRIMETHOPRIM/SULFAMETHOXAZOLE <=20 S END OF REPORT Assessment and Plan Problems: (1) Alcoholic cirrhosis of liver Status: Acute Assessment & Plan: He does have advanced cirrhosis. We started him on lactulose for an elevated ammonia level. He has been having multiple stools and his level has improved. He has refused his last two doses due to diarrhea. Will decrease the frequency of the lactulose and repeat an ammonia level with am labs. (2) Ascites Assessment & Plan: He underwent paracentesis with 6 liters removed on 05/07. He has already reaccumulated most of the fluid. He will likely need scheduled paracentesis after discharge for palliation. (3) Alcohol withdrawal Assessment & Plan: He was on CIWA protocol for several days but did not require dosing. CIWA discontinued. Central Venous Access Medical Necessity for Access: Hemodynamic Monitoring, IV Access, Medication Administration Time Spent on Plan of Care: < 30 min Exam Sepsis Risk: No Definite Risk Problem Qualifiers (1) Alcoholic cirrhosis of liver: Ascites presence: with ascites Qualified Codes: K70.31 - Alcoholic cirrhosis of liver with ascites MAIRA SANCHEZ MD May 10, 2017 19:19
[2017-05-11 03:43] VITALS: BP 94/49
[2017-05-11] MEDS: LEVOTHYROXINE SOD 0.025 MG TAB PO SCH (05:25)
[2017-05-11 06:33] LABS: PLATELET COUNT, AUTOMATED 71 K/uL (150-450)
[2017-05-11 06:45] LABS: INR 1.72
[2017-05-11 07:19] VITALS: BP 90/51
[2017-05-11] MEDS: LACTULOSE 10 GM/15 ML UDCUP PO SCH ×2 (08:19→17:30)
[2017-05-11] MEDS: SPIRONOLACTONE 25 MG TAB PO SCH (08:19)
[2017-05-11] MEDS: METOPROLOL SUCC XL 50 MG TABCR 50 MG TAB.ER.24H PO SCH (09:22)
[2017-05-11] MEDS: ASPIRIN 81 MG CHEW CHEW SCH (09:23)
[2017-05-11] MEDS: PANTOPRAZOLE SOD 40 MG TABEC PO SCH (09:23)
[2017-05-11] MEDS: THIAMINE HCL 100 MG TAB PO SCH (09:23)
[2017-05-11] MEDS: CEPHALEXIN MONO 500 MG CAP PO SCH ×4 (09:23→20:37)
[2017-05-11] MEDS ORDERED: SPIRONOLACTONE 25 MG TAB PO ONE (10:20)
[2017-05-11 10:30] VITALS: BP 100/55
[2017-05-11] MEDS: FUROSEMIDE 20 MG TAB PO SCH (11:11)
--- NOTE | 2017-05-11 14:46 | Hospitalist Progress Note ---
Subjective Progress Notes Subjective He reports no SOB, but that his abdomen is swelling back up. Physical Exam Vital Signs Date Time Temp Pulse Resp B/P (MAP) Pulse Ox O2 Delivery O2 Flow Rate FiO2 05/11/17 12:00 72 05/11/17 11:13 97.6 20 94 Room Air 05/11/17 10:30 100/55 (70) Intake and Output 05/12/17 07:00 Intake Total 820 ml Balance 820 ml Intake Oral 820 ml # Voids 1 # Bowel Movements 1 General Appearance: Alert, Awake, No Acute Distress GI: Soft and Non-Tender (, caput medusa, distended) Integumentary: Jaundice Result Diagram: 05/11/1760405/11/17604 Assessment and Plan Problems: (1) Alcoholic cirrhosis of liver Status: Acute Assessment & Plan: He does have advanced cirrhosis with hepatic encephalopathy , coagulopathy and ascites. We started him on lactulose for an elevated ammonia level, which hasn't helped much, but limited by diarrhea. Will add Rifaximin. His total bilirubin is down from admission, but still very high. He understands that he needs to stop drinking. Counseling to see him about treatment options. (2) Ascites Assessment & Plan: He underwent paracentesis with 6 liters removed on 05/07. He has already reaccumulated most of the fluid. He will likely need scheduled paracentesis after discharge for palliation. Spironolactone increased today, but will decrease Lasix. (3) Alcohol withdrawal Assessment & Plan: He was on CIWA protocol for several days but did not require dosing. CIWA discontinued. Central Venous Access Medical Necessity for Access: Hemodynamic Monitoring, IV Access, Medication Administration Exam Sepsis Risk: No Definite Risk Problem Qualifiers (1) Alcoholic cirrhosis of liver: Ascites presence: with ascites Qualified Codes: K70.31 - Alcoholic cirrhosis of liver with ascites DEEPTI BARTHOLOMEW MD May 11, 2017 14:46
[2017-05-11 16:02] VITALS: BP 90/38
--- NOTE | 2017-05-11 16:02 | Medical Nutrition Therapy ---
Nutrition Anthropometrics Height (Inches): 68.00 Height (Calculated Centimeters: 172.084615 Weight (Pounds): 202 Weight (Calculated Kilograms): 91.626 BMI Calculated: 30.71 Michael Nutrition Score: Adequate Michael Nutrition Risk Score: 17 Dietary Referral Nutrition Risk Factors: Nutrition Risk Comment: Physical Findings Physical Appearance: Obese BMI 30-39 Skin Appearance Skin Appearance: Edema Edema Location Modifier: Both Edema Location: ABDOMINAL Type of Edema: Degree of Edema: 3+ Gastrointestinal Symptoms GI Symtoms: Diarrhea Tube Present: Bowel Sounds: Recent Bowel Pattern: Diarrhea Stool Characteristics: Nutritional Diagnosis Nutritional Risk Acuity 2: Liver Cirrhosis Nutritional Risk Acuity 3: Fair Appetite, Alcohol abuse Past Medical History: hyperlipidemia, enlarged heart, reflux, liver disease, hypothyroidism, A. fib, dermatitis, alcohol use, pacemaker, appendectomy. Nutritional Acuity: 2-Moderate Nutrition Diagnosis: Excessive Alcohol Intake Nutrition Problem/Etiology/Sym: Excessive Alcohol Intake related to Alcohol addiction AEB diagnosis of liver disease and reports of patient's daily alcohol intake of 1 pint whiskey. Energy Requirement: 2400 ([place]-St Jeor: Actual BW X 1.5) Protein Requirement: 88 (IBW Kg X 1.2) Fluid Requirement: 2700 (30ml/kg) Diet Type: 2 Gram Sodium (NA), Low Cholesterol & Sat Fat Nutrition Intervention: Cont diet as ordered Drug: Diuretics Nutrition Monitoring & Eval Nutrition Goals: Eat 75-100% Meal Nutrition Follow-Up: Fair Intake RD Patient Assessment Time: [address] Assessment Type: RD Re-Assessment Patient Nutrition Acuity: 2-Moderate Follow Up Date: May 14, 2017 Nutritional Comment: Pt admitted for Alcoholic cirrhosis of liver and jaundice. Class I obesity with BMI of 30.7. Pt admitted with ascites, as this condition resolves wt is expected to decrease. Low H/H, Alb 3.1, BNP 142, Ammonia 34, Total Bilirubin 22.0, High AST/ALT/ALK Phos. Receiving Low chol, Low Sat Fat, 2 gr Na+ diet with no reports of intake. Follow diet tolerance, labs, wt. etc. 05/09 Alb 2.2, Ammonia 87, High LFT but improving. Pt consuming diet 25-75% and states that his appetite his improving. Follow labs, intake, etc. 05/11 Pt continues on 2 gram Na diet. Alb 2.2, ammonia 69, and LFT cont to improve. Pt intakes averaging 75% of reg portions over last 2 days. Will continue to monitor. ROMA CHAVEZ May 11, 2017 10:28
[2017-05-11 18:29] VITALS: BP 83/45
[2017-05-11] MEDS: RIFAXIMIN 550 MG TABLET PO SCH (20:37)
[2017-05-11 22:28] VITALS: BP 127/60
[2017-05-12] VITALS (7 sets, daily range): BP systolic 90–127; BP diastolic 50–70
[2017-05-12] MEDS: LEVOTHYROXINE SOD 0.05 MG TAB PO SCH (05:25)
[2017-05-12 05:38] LABS: PLATELET COUNT, AUTOMATED 73 K/uL (150-450)
[2017-05-12] MEDS: ASPIRIN 81 MG CHEW CHEW SCH (08:29)
[2017-05-12] MEDS: RIFAXIMIN 550 MG TABLET PO SCH ×2 (08:29→20:36)
[2017-05-12] MEDS: CEPHALEXIN MONO 500 MG CAP PO SCH ×4 (08:29→20:36)
[2017-05-12] MEDS: PANTOPRAZOLE SOD 40 MG TABEC PO SCH (08:29)
[2017-05-12] MEDS: THIAMINE HCL 100 MG TAB PO SCH (08:29)
[2017-05-12] MEDS: LACTULOSE 10 GM/15 ML UDCUP PO SCH (08:30)
[2017-05-12] MEDS: FUROSEMIDE 20 MG TAB PO SCH (08:30)
[2017-05-12] MEDS ORDERED: SPIRONOLACTONE 25 MG TAB PO SCH (09:00)
--- NOTE | 2017-05-12 09:53 | Hospitalist Progress Note ---
Subjective Progress Notes Subjective Still having frequent BM. He reports some improvement in his abdominal distention. Physical Exam Vital Signs Date Time Temp Pulse Resp B/P (MAP) Pulse Ox O2 Delivery O2 Flow Rate FiO2 05/12/17 08:19 93 Room Air 05/12/17 07:42 98.5 16 94/50 (65) 05/12/17 05:54 78 Intake and Output 05/13/17 07:00 Intake Total 240 ml Balance 240 ml Intake Oral 240 ml General Appearance: Alert, Awake, No Acute Distress GI: Soft and Non-Tender (Distended, caput medusa) Extremities: Edema (1-2+ pitting to mid arora) Integumentary: Jaundice Result Diagram: 05/12/1752005/12/17520 Assessment and Plan Problems: (1) Alcoholic cirrhosis of liver Status: Acute Assessment & Plan: He does have advanced cirrhosis with hepatic encephalopathy , coagulopathy and ascites. We started him on lactulose for an elevated ammonia level, which hasn't helped much, but limited by diarrhea. Rifaximin added last night. His total bilirubin is down from admission, but still very high. He understands that he needs to stop drinking. Counseling to see him about treatment options. (2) Ascites Assessment & Plan: He underwent paracentesis with 6 liters removed on 05/07. He has already reaccumulated most of the fluid. He will likely need scheduled paracentesis after discharge for palliation. Spironolactone and Lasix increased today. (3) Alcohol withdrawal Assessment & Plan: He was on CIWA protocol for several days but did not require dosing. CIWA discontinued. Central Venous Access Medical Necessity for Access: Hemodynamic Monitoring, IV Access, Medication Administration Exam Sepsis Risk: No Definite Risk Problem Qualifiers (1) Alcoholic cirrhosis of liver: Ascites presence: with ascites Qualified Codes: K70.31 - Alcoholic cirrhosis of liver with ascites DEEPTI BARTHOLOMEW MD May 12, 2017 09:53
[2017-05-12] MEDS: SPIRONOLACTONE 25 MG TAB PO SCH (11:07)
[2017-05-12] MEDS ORDERED: FUROSEMIDE 40 MG TAB PO SCH (14:00)
[2017-05-12] MEDS ORDERED: POTASSIUM CHL 10 MEQ TABCR PO ONE (17:50)
[2017-05-13 03:59] VITALS: BP 106/71
[2017-05-13] MEDS: LEVOTHYROXINE SOD 0.05 MG TAB PO SCH (05:42)
[2017-05-13] MEDS: CEPHALEXIN MONO 500 MG CAP PO SCH ×2 (08:22→13:18)
[2017-05-13] MEDS: ASPIRIN 81 MG CHEW CHEW SCH (08:22)
[2017-05-13] MEDS: THIAMINE HCL 100 MG TAB PO SCH (08:22)
[2017-05-13] MEDS: PANTOPRAZOLE SOD 40 MG TABEC PO SCH (08:23)
[2017-05-13] MEDS: RIFAXIMIN 550 MG TABLET PO SCH (08:23)
[2017-05-13] MEDS: SPIRONOLACTONE 25 MG TAB PO SCH (08:23)
[2017-05-13 08:56] VITALS: BP 110/63
[2017-05-13] MEDS ORDERED: LACTULOSE 10 GM/15 ML UDCUP PO SCH (09:00)
[2017-05-13] MEDS ORDERED: FURO-47 PO ×2 (12:27→12:55)
[2017-05-13] MEDS ORDERED: SPIR25TA78 PO ×2 (12:27→12:55)
[2017-05-13] MEDS ORDERED: CEPH500C24 PO (12:37)
--- NOTE | 2017-05-13 12:52 | Hospitalist Depart ---
Discharge Summary Reason for Hosp/Final Diag: (1) Alcoholic cirrhosis of liver Status: Acute Hospital Course & Plan: He does have advanced cirrhosis with hepatic encephalopathy, coagulopathy and ascites. We started him on lactulose for an elevated ammonia level, but was limited by diarrhea for pushing up the dose. Rifaximin was started, but doesn't seem to have lowered the ammonia or changed his mental status dramatically. Will use Lactulose daily as an outpatient. His total bilirubin is down from admission, but still very high. Ascites is as mentioned below. Counseling has seen him about alcohol cessation treatment options. Hopefully, if he continues to abstain from alcohol, he will gain enough liver function to reverse some or all of the above problems. This was explained to the patient and he expressed understanding. CMP, ammonia, and INR in about a week. (2) Ascites Status: Acute Hospital Course & Plan: He underwent paracentesis with 6 liters removed on . He has already reaccumulated most of the fluid. Spironolactone and Lasix started during the hospitalization and titrated up, but potentially could be titrated up further as an outpatient. He will likely need a paracentesis after discharge for palliation. CMP as an outpatient to follow electrolytes and renal function. (3) Alcohol withdrawal Status: Resolved Hospital Course & Plan: He was on CIWA protocol for several days but did not require dosing. CIWA discontinued. (4) UTI (urinary tract infection) Status: Acute Hospital Course & Plan: He grew E. Coli from his urine on 05/07. He was started on Keflex. He will finish a 7 day course. Departure Weight (Pounds): 188 Weight (Ounces): 9.0 Result Diagram: 05/12/17 0521 05/13/17 0541 Item Value Date Time Total Bilirubin 22.0 mg/dl *H 05/07/17 1130 Aspartate Amino Transf (AST/SGOT) 185 U/L H 05/07/17 1130 Alanine Aminotransferase (ALT/SGPT) 92 U/L H 05/07/17 1130 Alkaline Phosphatase 399 U/L H 05/07/17 1130 Troponin I < 0.012 ng/ml 05/07/17 1130 Total Protein 7.8 gm/dl 05/07/17 1130 Albumin 3.1 g/dl L 05/07/17 1130 B-Type Natriuretic Peptide 142 pg/ml H 05/07/17 1208 Ammonia 34 UMOL/L H 05/07/17 1321 Thyroid Stimulating Hormone (TSH) 5.87 uIU/ml H 05/08/17 0633 Total Bilirubin 19.2 mg/dl *H 05/08/17 0702 Aspartate Amino Transf (AST/SGOT) 130 U/L H 05/08/17 0702 Alanine Aminotransferase (ALT/SGPT) 76 U/L H 05/08/17 0702 Alkaline Phosphatase 292 U/L H 05/08/17 0702 Ammonia 87 UMOL/L H 05/09/17 0605 Total Bilirubin 18.9 mg/dl *H 05/10/17 0657 Total Bilirubin 15.9 mg/dl *H 05/11/17 0605 Total Bilirubin 16.5 mg/dl *H 05/12/17 0521 Total Bilirubin 16.5 mg/dl *H 05/13/17 0541 Aspartate Amino Transf (AST/SGOT) 123 U/L H 05/10/17 0657 Alanine Aminotransferase (ALT/SGPT) 80 U/L H 05/10/17 0657 Alkaline Phosphatase 299 U/L H 05/10/17 0657 Ammonia 62 UMOL/L H 05/10/17 0657 Aspartate Amino Transf (AST/SGOT) 94 U/L H 05/11/17 0605 Alanine Aminotransferase (ALT/SGPT) 67 U/L H 05/11/17 0605 Alkaline Phosphatase 265 U/L H 05/11/17 0605 Ammonia 69 UMOL/L H 05/11/17 0605 Ammonia 58 UMOL/L H 05/12/17 0521 Ammonia 56 UMOL/L H 05/13/17 0541 Aspartate Amino Transf (AST/SGOT) 88 U/L H 05/12/17 0521 Alanine Aminotransferase (ALT/SGPT) 66 U/L H 05/12/17 0521 Alkaline Phosphatase 245 U/L H 05/12/17 0521 Aspartate Amino Transf (AST/SGOT) 86 U/L H 05/13/17 0541 Alanine Aminotransferase (ALT/SGPT) 65 U/L H 05/13/17 0541 Alkaline Phosphatase 247 U/L H 05/13/17 0541 Potassium Level 3.4 mmol/L L 05/10/17 0657 Potassium Level 3.1 mmol/L L 05/11/17 0605 Potassium Level 3.1 mmol/L L 05/12/17 0521 Sodium Level 133 mmol/L L 05/10/17 0657 Sodium Level 130 mmol/L L 05/11/17 0605 Sodium Level 130 mmol/L L 05/12/17 0521 Sodium Level 130 mmol/L L 05/13/17 0541 Potassium Level 3.6 mmol/L 05/13/17 0541 Urine WBC 1-4 /HPF 05/07/17 1356 Urine WBC 1 /HPF 05/08/17 1645 Urine Bacteria Many /HPF H 05/07/17 1356 Urine Hyaline Casts Many /LPF H 05/07/17 1356 Urine Granular Casts Many /LPF H 05/07/17 1356 Urine Mucus Few /HPF 05/07/17 1356 Urine Mucus Few /HPF 05/08/17 1645 Urine Bacteria Few /HPF 05/08/17 1645 Urine Amorphous Crystals Few /HPF 05/08/17 1645 Urine RBC None /HPF 05/08/17 1645 Urine RBC None /HPF 05/07/17 1356 Urine Leukocyte Esterase Negative 05/08/17 1645 Urine Nitrite Positive H 05/08/17 1645 Prothromb Time International Ratio 1.66 05/07/17 1425 Prothromb Time International Ratio 1.72 05/11/17 0605 White Blood Count 10.1 k/uL 05/07/17 1208 White Blood Count 6.3 k/uL 05/08/17 0633 White Blood Count 7.5 k/uL 05/10/17 0657 White Blood Count 8.1 k/uL 05/11/17 0605 White Blood Count 8.2 k/uL 05/12/17 0521 Hemoglobin 12.2 g/dL L 05/12/17 0521 Hemoglobin 12.4 g/dL L 05/11/17 0605 Hemoglobin 13.5 g/dL L 05/10/17 0657 Hemoglobin 12.9 g/dL L 05/08/17 0633 Hemoglobin 13.6 g/dL L 05/07/17 1208 Mean Corpuscular Volume 104.6 fL H 05/07/17 1208 Mean Corpuscular Volume 104.9 fL H 05/08/17 0633 Mean Corpuscular Volume 103.8 fL H 05/10/17 0657 Mean Corpuscular Volume 103.3 fL H 05/11/17 0605 Mean Corpuscular Volume 103.3 fL H 05/12/17 0521 Platelet Count 73 K/uL L 05/12/17 0521 Platelet Count 71 K/uL L 05/11/17 0605 Platelet Count 80 K/uL L 05/10/17 0657 Platelet Count 70 K/uL L 05/08/17 0633 Platelet Count 90 K/uL L 05/07/17 1208 PEC #: [id number] NAUN: 05/07/17 STATUS: COMP REQ # : [id number] RECD: 05/07/[address] [facility] [address]: RAQUEL SCHOFIELD SOURCE: [facility] ENTR: 05/07/[address] [facility] [address]: RENA FOURNIER MD [place]: ORDERED: CULT URINE Procedure Result Verified URINE CULTURE Final 05/09/17-1123 Organism 1 ESCHERICHIA COLI >100,000 COL/ML PREDOMINANT ORGANISM IN A MIXED CULTURE ESC COLI M.I.C. RX --------- --- AMPICILLIN <=2 S AMPICILLIN/SULBACTAM <=2 S CEFAZOLIN <=4 S CEFTAZIDIME <=1 S CEFTRIAXONE <=1 S CEFEPIME <=1 S CEFOXITIN <=4 S ERTAPENEM <=0.5 S CIPROFLOXACIN <=0.25 S GENTAMICIN <=1 S IMIPENEM <=0.25 S LEVOFLOXACIN <=0.12 S NITROFURANTOIN <=16 S PIPERACILLIN/TAZOBACTAM <=4 S TOBRAMYCIN <=1 S TRIMETHOPRIM/SULFAMETHOXAZOLE <=20 S Imaging 05/07/17 CXR - No evidence of acute cardiopulmonary disease. EKG Vent. Rate : 079 BPM Atrial Rate : 079 BPM P-R Int : 170 ms QRS Dur : 142 ms QT Int : 448 ms P-R-T Axes : 005 092 016 degrees QTc Int : 513 ms Normal sinus rhythm Rightward axis Left bundle branch block Abnormal ECG Confirmed by BESSY HERNANDEZ ([id number]) on 05/09/2017 2:56:56 PM Condition: Improved Discharge: Home Discharge Instructions Home Meds Active Scripts Furosemide (FUROSEMIDE) 40 Mg Tablet, 40 MG PO QDAY, #15 Prov:DEEPTI BARTHOLOMEW MD 05/13/17 Spironolactone (SPIRONOLACTONE) 25 Mg Tablet, 100 MG PO QDAY, #60 Prov:DEEPTI BARTHOLOMEW MD 05/13/17 Lactulose (LACTULOSE) 10 Gm/15 Ml Solution, 20 GM PO DAILY, #1 BOTTLE Prov:DEEPTI BARTHOLOMEW MD 05/13/17 Cephalexin Monohydrate (CEPHALEXIN) 500 Mg Cap, 500 MG PO QID, #8 CAP Prov:DEEPTI BARTHOLOMEW MD 05/13/17 Reported Medications Aspirin (ASPIR 81) 81 Mg Tablet.dr, 81 MG PO QDAY, TAB 05/07/17 Levothyroxine Sodium (LEVOTHYROXINE SODIUM) 25 Mcg Tablet, 25 MCG PO QDAY 05/07/17 Pantoprazole Sodium (PANTOPRAZOLE SODIUM) 40 Mg Tablet.dr, 40 MG PO QDAY, TAB.SR 05/07/17 Discontinued Reported Medications Metoprolol Succinate (METOPROLOL SUCCINATE) 200 Mg Tab.er.24h, 0.5 TAB PO QDAY, TAB 05/08/17 Vit D3/Folic Acid/B2/B6/B12 (FOLGARD TABLET) 1 Each Tablet, 2000 UNIT PO DAILY 05/07/17 Vit B Complex 100 Cmb #2/Herbs (SM NATURAL BALANCED B-100 TAB) 100 Mg Tablet, 100 MG PO DAILY 05/07/17 Vit B Cmplx & C#11/Ca/Dha/Q10 (BRAIN [id number] Q10 TABLET) 1 Each Tablet, 1 EACH PO DAILY 05/07/17 Lisinopril (LISINOPRIL) 20 Mg Tablet, 20 MG PO QDAY, TAB 05/07/17 Furosemide (FUROSEMIDE) 20 Mg Tablet, 1 TAB PO DAILY, TAB 05/07/17 Spironolactone (SPIRONOLACTONE) 25 Mg Tablet, 25 MG PO DAILY, TAB 05/07/17 Metoprolol Succinate (METOPROLOL SUCCINATE) 50 Mg Tab.er.24h, 100 TAB PO QDAY, TAB 05/07/17 Salmeterol Xinaf/Fluticasone (Advair 250/50 Diskus) 250 Mcg/50 Mcg Inh, 1 PUFF INH BID 1 PUFF 06/26/11 Diet: Regular Activity: As Tolerated Special Instructions: Follow up with Lety Cyr on 05/20/17 at 2pm. Please come at 1:30 pm to fill out paperwork. Ammonia/CMP on 05/20/17. Get done a few hours before appoinment. Go to the ER for SOB, fevers, abdominal pain. Copies to: LETY SALAZAR APRN RELATIONSHIP SPECIALIST-C Venous Thromboembolism Antithrombotics Is Pt On Any Antithrombotics?: No Problem Qualifiers (1) Alcoholic cirrhosis of liver: Ascites presence: with ascites Qualified Codes: K70.31 - Alcoholic cirrhosis of liver with ascites DEEPTI BARTHOLOMEW MD May 13, 2017 12:52
[2017-05-13] MEDS ORDERED: LACT10SO62 PO (12:53)
== END 2017-05-13 14:03 | disposition home or self-care (01) | DRG 433 ==
LOC: ER 11:36 → MED 13:39
PROVIDERS: ADMIT Specialist; ATTEND Specialist
PROC: 0W9G3ZZ Drainage of Peritoneal Cavity, Percutaneous Approach (ICD-10-PCS; principal; 2017-05-07)
DX: K70.31 Alcoholic cirrhosis of liver with ascites (principal); F10.230 Alcohol dependence with withdrawal, uncomplicated; N39.0 Urinary tract infection, site not specified; D68.4 Acquired coagulation factor deficiency; B96.20 Unspecified Escherichia coli [E. coli] as the cause of diseases classified elsewhere; E87.70 Fluid overload, unspecified; K70.40 Alcoholic hepatic failure without coma; E78.5 Hyperlipidemia, unspecified; K21.9 Gastro-esophageal reflux disease without esophagitis; E03.9 Hypothyroidism, unspecified; I48.2 Chronic atrial fibrillation; I44.7 Left bundle-branch block, unspecified; Y90.1 Blood alcohol level of 20-39 mg/100 ml; Z95.0 Presence of cardiac pacemaker; Z87.891 Personal history of nicotine dependence
CPT/HCPCS: 36415; 71020; 81001; 82040; 82140; 82247; 82310; 82374; 82435; 82565; 82947; 83880; 84075; 84132; 84155; 84295; 84443; 84450; 84460; 84484; 84520; 85025; 85610; 85730; 87077; 87088; 87186; 93005; 99285; A7048; J1940; J7030

== ENCOUNTER 2017-05-11 14:32 | Outpatient (RCR) | payer MEDICARE ==
[2017-05-07 20:35] VITALS: BMI 30.7
[~2017-05-11 14:32] MED LIST changes: +ASPI-1471 PO; +FURO-45 PO; +LEVO25TA61 PO; +LISI20TA29 PO; +METO200T12 PO; +METO50TA19 PO; +PANT40TA65 PO; +SPIR25TA78 PO; +VIT1TABL PO; +VIT1TABL4 PO; +[UNRECOGNIZED DRUG - CODE] PO
[2017-05-13] MEDS ORDERED: FURO-47 PO ×2 (12:27→12:55)
[2017-05-13] MEDS ORDERED: SPIR25TA78 PO ×2 (12:27→12:55)
[2017-05-13] MEDS ORDERED: CEPH500C24 PO (12:37)
[2017-05-13] MEDS ORDERED: LACT10SO62 PO (12:53)
--- NOTE | 2017-05-14 12:30 | Transitional Care Management ---
Assessment Visit Type: Telephone Visit (05/14 Yuri) Cardiac Comment: 05/14 denies any CP Respiratory Comment: 05/14 On 6L gets SOB with activity. Sits down and rests. GI: Nutrition: WNL Except GI Comment: 05/14 discussed need to continue low salt diet and no alcohol consumption. Constipation?: No : WNL Except Comment: 05/13 "taking lasix so need to pee alot." Musculoskeletal, Exercise: WNL Except Musculoskeletal, Excercise Com: 05/14 some weakness-trying to move around and do my daily chores, Enc him to be careful and not overwork-to rest as needed. Mobility/Falls: WNL Integumentary: WNL Except Integumentary Comment: 05/14 a few IV site brusies. Feeling of Well Being: WNL Socialization: WNL Scheduled Follow-Up with Provi: Yes (05/14 has an appt with Monty Young on May 20 at 1330. ) Needed or Pending Tests: Yes (05/14 needs to get some labs befor seeing AQUATICS ASSISTANT DEPARTMENT HEAD amonia and CMP) TCM Discharge Criteria Red/Yellow Flags: 05/14 went over the SX & SX with red flags of CHF. Transitional Care Comment: 05/11 His nurse states he does not appreciate the degree of damage to his liver and stage of illness; he asked again why his belly was more swollen. Review CHF and cirrhosis with tx, meds and interventions he must accomplish like diet, quit smoking and etoh, be active, see MD for f/u 05/14 Discussed importance of discontinuing smoke and ETOH as both are very high contributors to his health and condition. If his SOB or abd swelling got worse he should call his PCP. He has not weighted today and went over the importance of daily wt and documenting so he would know if he was gaining and to call PCP if gaining 205 lbs. Copies to: JEAN CARLOS YOUNG APRN, JOAN May 14, 2017 12:30
[2017-05-24] MEDS ORDERED: PANT40TA65 (15:18)
[2017-05-27] MEDS ORDERED: MORP100S32 PO (11:57)
== END 2017-05-27 16:15 | disposition home or self-care (01) ==
LOC: TCM 14:32
PROVIDERS: ATTEND Nurse Practitioner
DX: Z02.9 Encounter for administrative examinations, unspecified (principal)

== ENCOUNTER 2017-05-19 13:43 | Outpatient (RCR) | payer MEDICARE ==
[2017-05-07 20:35] VITALS: BMI 30.7
[2017-05-19 10:11] LABS: INR 1.67
[~2017-05-19 13:43] MED LIST changes: +CEPH500C24 PO; +FURO-47 PO; +LACT10SO62 PO
--- NOTE | 2017-05-20 15:56 | RADIOLOGY IMAGING REPORT ---
FACILITY: [facility] [place] PATIENT NAME: Manuel Peters : 1960 MR: [id number] V: [id number] EXAM DATE: ORDERING PHYSICIAN: DARIUS MANN TECHNOLOGIST: Location: [facility] Patient: Manuel Peters : 1960 Visit/Account:[id number] Date of Sevice: 05/20/2017 Exam type: US GUIDANCE FOR THORA/PARA History: ASCITES/PARACENTESIS Comparison: May 07, 2017 Findings: Four sonographic images labeled right upper quadrant right lower quadrant, left lower quadrant left u pper quadrant demonstrate a large amount of ascites. The patient's skin was marked for paracentesis to be performed by Dr. Mann.. Please see Dr. Mann's report for complete details IMPRESSION: 1. As above Report Dictated By: Maura Oates MD at 05/20/2017 3:50 PM Report E-Signed By: Maura Oates MD at 05/20/2017 3:51 PM WSN:[email or web address]
== END 2017-05-20 18:00 | disposition home or self-care (01) ==
LOC: EDSTATUS 13:43 → US 13:43
PROVIDERS: ATTEND Nurse Practitioner Family
DX: Z01.818 Encounter for other preprocedural examination (principal); R18.8 Other ascites; K70.30 Alcoholic cirrhosis of liver without ascites
CPT/HCPCS: 36415; 85610; 85730

== ENCOUNTER → 2017-05-20 | Outpatient (CLI) | payer MEDICARE ==
[2017-05-07 20:35] VITALS: BMI 30.7
[~2017-05-20] MED LIST changes: +LIDOCAINE 2% MDV 400MG/20ML VL INFIL PRN; +PANT40TA65
[2017-05-20 15:30] VITALS: BP 106/69
--- NOTE | 2017-05-20 15:47 | Post Operative Progress Note ---
Post Operative Progress Note Date: May 20, 2017 Time: 16:40 Surgeon: salo Anesthesia: local Pre-Op Diagnosis: ascites secondary to etoh cirrhosis of liver Post-Op Diagnosis: same Procedure(s): abdominal paracentesis Specimen Removed:(May be N/A): 8 liters removed DARIUS WARE MD May 20, 2017 15:47
--- NOTE | 2017-05-20 15:54 | General Surgery 1 H&P ---
History of Present Illness Chief Complaint abdominal distention History of Present Illness 56 yo male with a cardiac pacer and defibrillator who wears oxygen at night and who has etoh cirrhosis of the liver with ascites presents with increasing abdominal distention and discomfort. pt had a paracentesis 2 weeks ago with 6 liters removed. he is currently not drinking etoh. History Other Past Surgeries: appy and pacer placement. Home Meds Active Scripts Furosemide (FUROSEMIDE) 40 Mg Tablet, 40 MG PO QDAY, #15 Prov:DEEPTI BARTHOLOMEW MD 05/13/17 Spironolactone (SPIRONOLACTONE) 25 Mg Tablet, 100 MG PO QDAY, #60 Prov:DEEPTI BARTHOLOMEW MD 05/13/17 Lactulose (LACTULOSE) 10 Gm/15 Ml Solution, 20 GM PO DAILY, #1 BOTTLE Prov:DEEPTI BARTHOLOMEW MD 05/13/17 Reported Medications Aspirin (ASPIR 81) 81 Mg Tablet.dr, 81 MG PO QDAY, TAB 05/07/17 Levothyroxine Sodium (LEVOTHYROXINE SODIUM) 25 Mcg Tablet, 25 MCG PO QDAY 05/07/17 Discontinued Reported Medications Pantoprazole Sodium (PANTOPRAZOLE SODIUM) 40 Mg Tablet.dr, 40 MG PO QDAY, TAB.SR 05/07/17 Metoprolol Succinate (METOPROLOL SUCCINATE) 200 Mg Tab.er.24h, 0.5 TAB PO QDAY, TAB 05/08/17 Vit D3/Folic Acid/B2/B6/B12 (FOLGARD TABLET) 1 Each Tablet, 2000 UNIT PO DAILY 05/07/17 Vit B Complex 100 Cmb #2/Herbs (SM NATURAL BALANCED B-100 TAB) 100 Mg Tablet, 100 MG PO DAILY 05/07/17 Vit B Cmplx & C#11/Ca/Dha/Q10 (BRAIN FOBXN-TSB-MO Q10 TABLET) 1 Each Tablet, 1 EACH PO DAILY 05/07/17 Lisinopril (LISINOPRIL) 20 Mg Tablet, 20 MG PO QDAY, TAB 05/07/17 Furosemide (FUROSEMIDE) 20 Mg Tablet, 1 TAB PO DAILY, TAB 05/07/17 Spironolactone (SPIRONOLACTONE) 25 Mg Tablet, 25 MG PO DAILY, TAB 05/07/17 Discontinued Scripts Cephalexin Monohydrate (CEPHALEXIN) 500 Mg Cap, 500 MG PO QID, #8 CAP Prov:DEEPTI BARTHOLOMEW MD 05/13/17 Allergies: Coded Allergies: No Known Drug Allergies (Verified , 05/07/17) Review of Systems History of Hypertension?: No History of Diabetes?: No History of DVT?: No Obstructive Sleep Apnea?: Yes History of Liver Disease?: Yes History of Kidney Disease?: No Constitutional: Weight Gain Respiratory: Reports Shortness of Breath Cardiovascular: Denies Chest Pain, Denies Other : Denies Dysuria, Denies Other Exam General Appearance: Alert, Awake GI: Other (massively distended and firm to palpation.) Assessment and Plan Problems: (1) Ascites Status: Acute Assessment & Plan: will do a paracentesis Copies to: JEAN CARLOS SALAZAR APRN STATION OPERATOR-C; DARIUS WARE MD Central Venous Access Medical Necessity for Access: Hemodynamic Monitoring, IV Access, Medication Administration Venous Thromboembolism Antithrombotics Is Pt On Any Antithrombotics?: No DARIUS WARE MD May 20, 2017 15:54
[2017-05-20 16:00] VITALS: BP 103/68
[2017-05-20 16:15] VITALS: BP 104/68
[2017-05-20 16:30] VITALS: BP 102/63
[2017-05-20 16:45] VITALS: BP 105/68
--- NOTE | 2017-05-20 21:25 | PROCEDURE NOTE ---
EVENT DATE: May 20, 2017 SURGEON: Trent Mann MD ANESTHESIA: Local. PREPROCEDURE DIAGNOSIS Symptomatic ascites secondary to alcoholic liver disease. POSTPROCEDURE DIAGNOSIS Symptomatic ascites secondary to alcoholic liver disease. PROCEDURE PERFORMED Abdominal paracentesis. DESCRIPTION OF PROCEDURE The patient was placed in the supine position. Ultrasound was used to find a nice spot in the right upper quadrant for paracentesis. This area was marked. The area was then prepped and draped in a sterile fashion. The skin was anesthetized with 1% Xylocaine. A milena was made in the skin with a #11 blade. A paracentesis catheter was inserted, and we proceeded to return 8 L of fluid. It was still running quite freely, but after 8 L, that seemed to be enough. The procedure was then terminated. The catheter was removed. An Op-Site was placed. The patient tolerated the procedure well with no apparent complication. BELINDA
[2017-05-21 15:45] VITALS: BP 103/66
== END ==
LOC: SPU 10:39
PROVIDERS: ATTEND Surgery
DX: R18.8 Other ascites (principal); K70.30 Alcoholic cirrhosis of liver without ascites
CPT/HCPCS: 49083; A7048; J2001

== ENCOUNTER → 2017-05-20 | Outpatient (CLI) | payer MEDICARE ==
[2017-05-07 20:35] VITALS: BMI 30.7
[~2017-05-20] MED LIST changes: -LIDOCAINE 2% MDV 400MG/20ML VL INFIL PRN; -PANT40TA65
[2017-05-20 15:27] LABS: PLATELET COUNT, AUTOMATED 233 K/uL (150-450)
== END ==
LOC: LAB 15:16
PROVIDERS: ATTEND Nurse Practitioner Family
DX: K70.30 Alcoholic cirrhosis of liver without ascites (principal); R18.8 Other ascites; E87.70 Fluid overload, unspecified; R17 Unspecified jaundice
CPT/HCPCS: 36415; 82040; 82140; 82247; 82310; 82374; 82435; 82565; 82607; 82746; 82947; 84075; 84132; 84155; 84295; 84450; 84460; 84520; 85025

== ENCOUNTER 2017-05-24 14:43 | Inpatient (IN) | payer MEDICARE ==
[~2017-05-24] VITALS: Ht 172.7 cm; Wt 82.1 kg
[~2017-05-24 14:43] MED LIST changes: -PANT40TA65
[2017-05-24] MEDS ORDERED: PANT40TA65 (15:18)
[2017-05-24 15:19] VITALS: BP 93/57
[2017-05-24] MEDS ORDERED: MORPHINE IR 15 MG TAB PO PRN (16:00)
--- NOTE | 2017-05-24 16:19 | History & Physical ---
History of Present Illness Chief Complaint Abdominal swelling History of Present Illness This patient presented to his primary care provider today and was found to have increased abdominal girth. He has a history of end stage cirrhosis and has been having trouble with worsening ascites. He was admitted for similar concerns towards the end of April and was discharged on 05/13/2017. He followed up with Dr. Mann on 05/20/2017 for a therapeutic paracentesis. The notes indicate that 8 liters was removed at that time. He has continued to have increasing edema since that time. History Problems: (1) Alcoholic cirrhosis of liver Status: Acute Home Meds Active Scripts Furosemide (FUROSEMIDE) 40 Mg Tablet, 40 MG PO QDAY, #15 Prov:DEEPTI BARTHOLOMEW MD 05/13/17 Spironolactone (SPIRONOLACTONE) 25 Mg Tablet, 100 MG PO QDAY, #60 Prov:DEEPTI BARTHOLOMEW MD 05/13/17 Lactulose (LACTULOSE) 10 Gm/15 Ml Solution, 20 GM PO DAILY, #1 BOTTLE Prov:DEEPTI BARTHOLOMEW MD 05/13/17 Reported Medications Pantoprazole Sodium (PANTOPRAZOLE SODIUM) 40 Mg Tablet.dr, 1 TAB QDAY 05/24/17 Aspirin (ASPIR 81) 81 Mg Tablet.dr, 81 MG PO QDAY, TAB 05/07/17 Levothyroxine Sodium (LEVOTHYROXINE SODIUM) 25 Mcg Tablet, 25 MCG PO QDAY 05/07/17 Discontinued Reported Medications Pantoprazole Sodium (PANTOPRAZOLE SODIUM) 40 Mg Tablet.dr, 40 MG PO QDAY, TAB.SR 05/07/17 Discontinued Scripts Cephalexin Monohydrate (CEPHALEXIN) 500 Mg Cap, 500 MG PO QID, #8 CAP Prov:DEEPTI BARTHOLOMEW MD 05/13/17 Allergies: Coded Allergies: No Known Drug Allergies (Verified , 05/07/17) Patient History: No pertinent family history FATHER, Age:78 MOTHER, Age:73 BROTHER OR SISTER BROTHER OR SISTER BROTHER OR SISTER Hx Smoking: Yes (2-07/11PPD) Smoking Status: Current: Every Day Smoker Hx Alcohol Use: Yes When Quit Alcohol?: stopped 3 weeks ago Hx Substance Use Disorder: No Social Drug Use: Former Review of Systems All Systems Reviewed/Normal: Yes, Except as Noted Gastrointestinal: Abdominal Pain Exam Vital Signs Vital Signs Date Time Temp Pulse Resp B/P (MAP) Pulse Ox O2 Delivery O2 Flow Rate FiO2 05/24/17 15:49 97 Blow-by 05/24/17 15:19 97.7 92 24 93/57 (69) Neuro: No Gross deficits Eyes: PERRLA Cardiovascular: Regular Rate and Rhythm Respiratory: Clear to Auscultation GI: Other (Distended with no tenderness.) Extremities: No Edema Integumentary: Jaundice Assessment and Plan Problems: (1) Alcoholic cirrhosis of liver Status: Acute Assessment & Plan: He does have end stage liver disease. His bilirubin has increased since his last discharge and his ascitic fluid is returned after only a few days since his last paracentesis. He does express understanding about his advanced disease and that there are not many treatment options available. He would like to be evaluated for inpatient hospice and comfort care. We will continue his diuretics and lactulose at this time. We have added morphine for pain control. We will have social evaluate him for hospice options. (2) Ascites Status: Acute Assessment & Plan: We have consulted with Dr. Sandoval regarding placement of a catheter to facilitate paracentesis as needed. (3) Leukocytosis Assessment & Plan: He does have an increasing WBC, but no symptoms of localized infection. He does not have any abdominal tenderness that would be consistent with bacterial peritonitis. Repeat labs are ordered for tomorrow. Central Venous Access Medical Necessity for Access: Hemodynamic Monitoring, IV Access, Medication Administration Venous Thromboembolism Antithrombotics Is Pt On Any Antithrombotics?: No Exam Sepsis Risk: No Definite Risk BESSY HERNANDEZ DO May 24, 2017 16:19
--- NOTE | 2017-05-24 17:51 | General Surgery Consultation ---
History of Present Illness Requesting Physician Dr. NURYS Koch, Hospitalist Service Reason for Consult Recurrent Ascites Chief Complaint Abdominal distension History of Present Illness 56yo male with alcoholic cirrhosis and h/o recent pericentesis presents with recurrence of abdominal bloating consistent with recurrence of his ascites. He has end-stage liver disease and is apparently planning on hospice care and I have been asked to consider the patient for an indwelling peritoneal catheter to facilitate drainage of his recurring ascites on demand. History Problems: (1) End stage liver disease Status: Chronic (2) Alcoholic cirrhosis Status: Chronic Home Meds Active Scripts Furosemide (FUROSEMIDE) 40 Mg Tablet, 40 MG PO QDAY, #15 Prov:DEEPTI BARTHOLOMEW MD 05/13/17 Spironolactone (SPIRONOLACTONE) 25 Mg Tablet, 100 MG PO QDAY, #60 Prov:DEEPTI BARTHOLOMEW MD 05/13/17 Lactulose (LACTULOSE) 10 Gm/15 Ml Solution, 20 GM PO DAILY, #1 BOTTLE Prov:DEEPTI BARTHOLOMEW MD 05/13/17 Reported Medications Pantoprazole Sodium (PANTOPRAZOLE SODIUM) 40 Mg Tablet.dr, 1 TAB QDAY 05/24/17 Aspirin (ASPIR 81) 81 Mg Tablet.dr, 81 MG PO QDAY, TAB 05/07/17 Levothyroxine Sodium (LEVOTHYROXINE SODIUM) 25 Mcg Tablet, 25 MCG PO QDAY 05/07/17 Discontinued Reported Medications Pantoprazole Sodium (PANTOPRAZOLE SODIUM) 40 Mg Tablet.dr, 40 MG PO QDAY, TAB.SR 05/07/17 Discontinued Scripts Cephalexin Monohydrate (CEPHALEXIN) 500 Mg Cap, 500 MG PO QID, #8 CAP Prov:DEEPTI BARTHOLOMEW MD 05/13/17 Allergies: Coded Allergies: No Known Drug Allergies (Verified , 05/07/17) Family History: No pertinent family history FATHER, Age:78 MOTHER, Age:73 BROTHER OR SISTER BROTHER OR SISTER BROTHER OR SISTER Review of Systems All Systems Reviewed/Normal: Yes, Except as Noted Gastrointestinal: Abdominal Pain Exam Vital Signs Vital Signs Date Time Temp Pulse Resp B/P (MAP) Pulse Ox O2 Delivery O2 Flow Rate FiO2 05/24/17 15:49 97 Blow-by 05/24/17 15:19 97.7 92 24 93/57 (69) General Appearance: Alert, Awake, No Acute Distress, Afebrile GI: Other (distended and dull to percussion with a fluid wave) Assessment and Plan Problems: (1) Ascites Status: Acute Assessment & Plan: 05/24/17: I have explained the patient's condition with him and he volunteers to me that he does not plan on going home and will be entered into hospice care, likely inpatient. He is interested in having a indwelling peritoneal catheter placed to facilitate drainage of his recurring ascites. We will get a noncontrast CT of his abdomen and pelvis to assess the degree of ascites and look for a good window in which to place a indwelling peritoneal catheter. I will look at the schedule and see when I can get him on the OR schedule to place the catheter in the next day or 2. (2) Alcoholic cirrhosis of liver Status: Acute Assessment & Plan: He does have end stage liver disease. His bilirubin has increased since his last discharge and his ascitic fluid is returned after only a few days since his last paracentesis. He does express understanding about his advanced disease and that there are not many treatment options available. He would like to be evaluated for inpatient hospice and comfort care. We will continue his diuretics and lactulose at this time. We have added morphine for pain control. We will have social evaluate him for hospice options. Central Venous Access Medical Necessity for Access: Hemodynamic Monitoring, IV Access, Medication Administration Condition Stable Time Spent: < 30 min Venous Thromboembolism Antithrombotics Is Pt On Any Antithrombotics?: No Problem Qualifiers (1) Ascites: Ascites type: due to alcoholic cirrhosis Qualified Codes: K70.31 - Alcoholic cirrhosis of liver with ascites (2) Alcoholic cirrhosis of liver: Ascites presence: with ascites Qualified Codes: K70.31 - Alcoholic cirrhosis of liver with ascites BESSY ARNOLD MD May 24, 2017 17:51
[2017-05-24 18:32] VITALS: BP 87/53
[2017-05-24 18:34] VITALS: BP 87/53
[2017-05-24 20:24] VITALS: BP 98/58
[2017-05-25 00:24] VITALS: BP 101/62
[2017-05-25 04:50] VITALS: BP 103/61
[2017-05-25 05:55] LABS: PLATELET COUNT, AUTOMATED 161 K/uL (150-450)
[2017-05-25] MEDS: LEVOTHYROXINE SOD 0.025 MG TAB PO SCH (06:34)
--- NOTE | 2017-05-25 07:01 | RADIOLOGY IMAGING REPORT ---
FACILITY: [facility] - [place] PATIENT NAME: Manuel Peters : 1960 MR: [id number] V: [id number] EXAM DATE: ORDERING PHYSICIAN: BESSY ARNOLD TECHNOLOGIST: Location: [facility] - [place] Patient: Manuel Peters : 1960 Visit/Account:[id number] Date of Sevice: 05/25/2017 EXAMINATION: CT Abdomen and Pelvis Without Contrast 05/25/2017 7:00 AM HISTORY: cirrhosis with ascites TECHNIQUE: Spiral scan was through the abdomen and pelvis without contrast. One of the following dose optimization techniques was utilized in the performance of this exam: Autom ated exposure control; adjustment of the mA and/or kV according to the patient's size; or use of an i terative reconstruction technique. Specific details can be referenced in the facility's radiology C T exam operational policy. COMPARISON STUDIES: Abdominal ultrasound 11/27/1715. FINDINGS: Liver / biliary: Mildly lobular capsular contours. No focal mass evident without contrast. Multiple g allstones in the gallbladder. No biliary dilatation or visible choledocholithiasis. Pancreas: negative Spleen: Not significantly enlarged. Adrenal glands: negative Kidneys / retroperitoneum: negative Pelvic structures: negative Bowel / peritoneum / mesenteries: Moderate to large volume of ascites. Proximal and mid small bowel i s prominent with fluid and gas with loops measuring up to just over 3.5 cm. Distal ileum is more avtar apsed although a focal high-grade transition point is not well-defined. Diverticulosis of the distal colon. Vessels: Recanalized umbilical vein and other abdominal varices. There are also variceal superficial veins in the abdominal wall. No visible hypodense portal venous thrombus. Mild atherosclerosis. Musculoskeletal / Body wall: Degenerative changes in the spine most laterally at L5-S1. Small bone is land T10. Hemangiomas in T12 and L2. Lymph node assessment: negative Lower chest: Pacemaker leads in heart. Metallic tubular device in the anterior left lung base. IMPRESSION: 1. Cirrhotic liver. Moderate to large volume of ascites. 2. Prominent small bowel with transition to collapsed ileum consistent with mechanical small bowel ob struction. Precise transition point is not well-defined on this study. Report Dictated By: Vikram Hayes MD at 05/25/2017 6:44 AM Report E-Signed By: Vikram Hayes MD at 05/25/2017 6:56 AM WSN:[id number]
[2017-05-25 08:27] VITALS: Ht 172.7 cm; Wt 82.1 kg
[2017-05-25 08:37] VITALS: BP 92/46
[2017-05-25] MEDS ORDERED: FUROSEMIDE 40 MG TAB PO SCH (09:00)
[2017-05-25] MEDS ORDERED: SPIRONOLACTONE 25 MG TAB PO SCH (09:00)
[2017-05-25] MEDS ORDERED: LACTULOSE 10 GM/15 ML UDCUP PO SCH (09:00)
[2017-05-25] MEDS: PANTOPRAZOLE SOD 40 MG TABEC PO SCH (10:46)
[2017-05-25] MEDS: LACTULOSE 10 GM/15 ML UDCUP PO SCH (10:47)
--- NOTE | 2017-05-25 10:58 | Hospitalist Progress Note ---
Subjective Progress Notes Subjective He had some abdominal discomfort, but changing position helps some. Physical Exam Vital Signs Date Time Temp Pulse Resp B/P (MAP) Pulse Ox O2 Delivery O2 Flow Rate FiO2 05/25/17 08:37 97.5 93 20 92/46 (61) 90 Room Air General Appearance: Alert, Awake, No Acute Distress GI: Other (Distended, non-tender with palpation) Extremities: Edema (1+ pitting in shins) Integumentary: Jaundice Result Diagram: 05/25/1754505/25/17545 Assessment and Plan Problems: (1) Alcoholic cirrhosis of liver Status: Acute Assessment & Plan: He does have end stage liver disease. His bilirubin remains elevated and his ascitic fluid is returned after only a few days since his last paracentesis. He does express understanding about his advanced disease and that there are not many treatment options available. He would like to be evaluated for inpatient hospice and comfort care. We will continue his spironolactone and lactulose at this time. We have added morphine for pain control. (2) Ascites Status: Acute Assessment & Plan: We have consulted with Dr. Sandoval regarding placement of a catheter to facilitate paracentesis as needed. (3) Hyponatremia Status: Acute Assessment & Plan: Secondary to cirrhosis and furosemide. Will stop furosemide and follow. (4) Leukocytosis Status: Acute Assessment & Plan: He does have an increasing WBC, but no symptoms of localized infection. He does not have any abdominal tenderness that would be consistent with bacterial peritonitis. Afebrile. Repeat labs are ordered for tomorrow. Central Venous Access Medical Necessity for Access: Hemodynamic Monitoring, IV Access, Medication Administration Exam Sepsis Risk: No Definite Risk Problem Qualifiers (1) Alcoholic cirrhosis of liver: Ascites presence: with ascites Qualified Codes: K70.31 - Alcoholic cirrhosis of liver with ascites (2) Ascites: Ascites type: due to alcoholic cirrhosis Qualified Codes: K70.31 - Alcoholic cirrhosis of liver with ascites DEEPTI BARTHOLOMEW MD May 25, 2017 10:58
[2017-05-25 11:32] VITALS: BP 113/71
--- NOTE | 2017-05-25 17:28 | General Surgery Progress Note ---
Subjective Progress Notes Subjective No new complaints. Physical Exam Vital Signs Date Time Temp Pulse Resp B/P (MAP) Pulse Ox O2 Delivery O2 Flow Rate FiO2 05/25/17 11:32 97.7 86 20 113/71 (85) 94 Room Air Intake and Output 05/26/17 07:00 Intake Total 300 ml Balance 300 ml Intake Oral 300 ml General Appearance: Alert, Awake, No Acute Distress, Afebrile GI: Other (Soft, diffuse mild TTP, abdomen is very distended and dull to percussion) Result Diagram: 05/25/17 0546 05/25/17 0546 Assessment and Plan Problems: (1) Ascites Status: Acute Assessment & Plan: 05/24/17: I have explained the patient's condition with him and he volunteers to me that he does not plan on going home and will be entered into hospice care, likely inpatient. He is interested in having a indwelling peritoneal catheter placed to facilitate drainage of his recurring ascites. We will get a noncontrast CT of his abdomen and pelvis to assess the degree of ascites and look for a good window in which to place a indwelling peritoneal catheter. I will look at the schedule and see when I can get him on the OR schedule to place the catheter in the next day or 2. 05/25/17: CT with a lot of ascites but there's a good window in his RUQ to place an in-dwelling peritoneal catheter. Will schedule this for tomorrow afternoon. I have explained this procedure to the patient in detail along with the alternatives and risks and his questions have been answered. He would like to have the in-dwelling peritoneal catheter placed tomorrow as planned. Will make him NPO after 0700 in the morning as 1500 is the expected procedure start time. (2) Alcoholic cirrhosis of liver Status: Acute Assessment & Plan: He does have end stage liver disease. His bilirubin has increased since his last discharge and his ascitic fluid is returned after only a few days since his last paracentesis. He does express understanding about his advanced disease and that there are not many treatment options available. He would like to be evaluated for inpatient hospice and comfort care. We will continue his diuretics and lactulose at this time. We have added morphine for pain control. We will have social evaluate him for hospice options. Central Venous Access Medical Necessity for Access: Hemodynamic Monitoring, IV Access, Medication Administration Condition Stable. Time Spent: < 30 min Exam Sepsis Risk: No Definite Risk Problem Qualifiers (1) Ascites: Ascites type: due to alcoholic cirrhosis Qualified Codes: K70.31 - Alcoholic cirrhosis of liver with ascites (2) Alcoholic cirrhosis of liver: Ascites presence: with ascites Qualified Codes: K70.31 - Alcoholic cirrhosis of liver with ascites BESSY ARNOLD MD May 25, 2017 17:27
[2017-05-25 19:33] VITALS: BP 95/68
[2017-05-25] MEDS ORDERED: CALCIUM CARBONATE 500 MG CHEW PO PRN (21:45)
[2017-05-26] VITALS (44 sets, daily range): BP systolic 61–105; BP diastolic 20–77
[2017-05-26] MEDS: LEVOTHYROXINE SOD 0.025 MG TAB PO SCH (05:43)
[2017-05-26 05:58] LABS: PLATELET COUNT, AUTOMATED 194 K/uL (150-450)
[2017-05-26 06:04] LABS: INR 1.75
--- NOTE | 2017-05-26 06:55 | General Surgery Progress Note ---
Subjective Progress Notes Subjective No new complaints. Physical Exam Vital Signs Date Time Temp Pulse Resp B/P (MAP) Pulse Ox O2 Delivery O2 Flow Rate FiO2 05/26/17 04:55 91 05/26/17 03:54 96.3 100 20 90/70 (77) Room Air General Appearance: Alert, Awake, No Acute Distress, Afebrile GI: Other (distended, tense, dull to percussion) Extremities: Warm, Perfused Result Diagram: 05/26/17 0531 05/26/17 0531 Assessment and Plan Problems: (1) Ascites Status: Acute Assessment & Plan: 05/24/17: I have explained the patient's condition with him and he volunteers to me that he does not plan on going home and will be entered into hospice care, likely inpatient. He is interested in having a indwelling peritoneal catheter placed to facilitate drainage of his recurring ascites. We will get a noncontrast CT of his abdomen and pelvis to assess the degree of ascites and look for a good window in which to place a indwelling peritoneal catheter. I will look at the schedule and see when I can get him on the OR schedule to place the catheter in the next day or 2. 05/25/17: CT with a lot of ascites but there's a good window in his RUQ to place an in-dwelling peritoneal catheter. Will schedule this for tomorrow afternoon. I have explained this procedure to the patient in detail along with the alternatives and risks and his questions have been answered. He would like to have the in-dwelling peritoneal catheter placed tomorrow as planned. Will make him NPO after 0700 in the morning as 1500 is the expected procedure start time. 05/26/17: Will place indwelling tunneled peritoneal catheter today. Pt agrees with proceeding with this. (2) Alcoholic cirrhosis of liver Status: Acute Assessment & Plan: He does have end stage liver disease. His bilirubin has increased since his last discharge and his ascitic fluid is returned after only a few days since his last paracentesis. He does express understanding about his advanced disease and that there are not many treatment options available. He would like to be evaluated for inpatient hospice and comfort care. We will continue his diuretics and lactulose at this time. We have added morphine for pain control. We will have social evaluate him for hospice options. Central Venous Access Medical Necessity for Access: Hemodynamic Monitoring, IV Access, Medication Administration Condition Stable. Time Spent: < 30 min Exam Sepsis Risk: Severe Sepsis Risk Problem Qualifiers (1) Ascites: Ascites type: due to alcoholic cirrhosis Qualified Codes: K70.31 - Alcoholic cirrhosis of liver with ascites (2) Alcoholic cirrhosis of liver: Ascites presence: with ascites Qualified Codes: K70.31 - Alcoholic cirrhosis of liver with ascites BESSY ARNOLD MD May 26, 2017 06:55
[2017-05-26] MEDS: LACTULOSE 10 GM/15 ML UDCUP PO SCH (08:05)
[2017-05-26] MEDS: PANTOPRAZOLE SOD 40 MG TABEC PO SCH (08:12)
[2017-05-26] MEDS ORDERED: LORazepam 2 MG/ML VIAL IVP PRN (09:40)
[2017-05-26] MEDS ORDERED: PROMETHAZINE 25 MG/ML 1 ML AMP IVP PRN ×2 (09:40→22:45)
--- NOTE | 2017-05-26 10:54 | Hospitalist Progress Note ---
Subjective Progress Notes Subjective Had lengthy discussion with Mr. Peters regarding his diagnosis and prognosis. Physical Exam Vital Signs Date Time Temp Pulse Resp B/P (MAP) Pulse Ox O2 Delivery O2 Flow Rate FiO2 05/26/17 07:56 95 05/26/17 07:56 Room Air 05/26/17 07:56 97.3 104 20 105/69 (81) Intake and Output 05/27/17 07:00 # Voids 1 # Bowel Movements 2 General Appearance: Alert, Awake, Other (generalized icterus) Eyes: Other (sclera icteric) Cardiovascular: Other (Fairly regular distant tones) Respiratory: Other (Fairly clear) GI: Other (distended/fairly taut/rare BS/no significant tenderness elicited) Extremities: Warm, Perfused, Edema Result Diagram: 05/26/1753005/26/17530 Item Value Date Time Albumin 2.4 g/dl L 05/26/17530 Total Protein 6.0 gm/dl L 05/26/17 05 Alkaline Phosphatase 214 U/L H 05/26/17 0531 Alanine Aminotransferase (ALT/SGPT) 56 U/L 05/26/17 0531 Aspartate Amino Transf (AST/SGOT) 76 U/L H 05/26/17 0531 Total Bilirubin 19.3 mg/dl *H 05/26/17 0531 Calcium Level 8.3 mg/dl L 05/26/1731 Prothromb Time International Ratio 1.75 05/26/1731 Prothrombin Time 20.8 seconds H 05/26/17 0531 Assessment and Plan Problems: (1) Alcoholic cirrhosis of liver Status: Acute Assessment & Plan: He does have end stage liver disease. His bilirubin remains elevated and his ascitic fluid is returned after only a few days since his last paracentesis. He does express understanding about his advanced disease and that there are not many treatment options available. At this point , he would like to have comfort measures and be evaluated for inpatient hospice. We will hold his lactulose as he is having multiple loose stools. Will hold off on Lasix and spironolactone as his sodium is lower and his creatinine has risen slightly. We have added morphine for pain control. Will also use Ativan for anxiety and Phenergan for nausea. Will work with SW/DC planning on appropriate plans for his care. (2) Ascites Status: Acute Assessment & Plan: Dr. Sandoval is planning placement of a catheter to facilitate paracentesis as needed. (3) Hyponatremia Status: Acute Assessment & Plan: Secondary to cirrhosis and diuretics. Will hold off on diuretics for now. (4) Leukocytosis Status: Acute Assessment & Plan: He does have an increasing WBC, but no symptoms of localized infection. He does not have abdominal tenderness that would be consistent with bacterial peritonitis. He has been afebrile. Watch closely. Central Venous Access Medical Necessity for Access: Hemodynamic Monitoring, IV Access, Medication Administration Exam Sepsis Risk: No Definite Risk Problem Qualifiers (1) Alcoholic cirrhosis of liver: Ascites presence: with ascites Qualified Codes: K70.31 - Alcoholic cirrhosis of liver with ascites (2) Ascites: Ascites type: due to alcoholic cirrhosis Qualified Codes: K70.31 - Alcoholic cirrhosis of liver with ascites JASMIN SANCHEZ MD May 26, 2017 10:54
[2017-05-26] MEDS: MORPHINE 2 MG/ML SYR IVP PRN ×2 (11:39→19:54)
[2017-05-26] MEDS ORDERED: PREPARATION H CREAM 27 GM TUBE PR PRN (11:50)
[2017-05-26] MEDS ORDERED: NORMOSOL R SOLN(*) 1000 ML BAG 1,000 ML IV ONE (12:00)
[2017-05-26] MEDS ORDERED: LIDOCAINE MPF 1% 5 ML VIAL ONE (12:16)
[2017-05-26] MEDS ORDERED: PROPOFOL EMUL(*) 10MG/ML 20 ML 20 ML ONE (12:16)
[2017-05-26] MEDS ORDERED: LIDO/EPI 1% MPF 1:200,000 30ML ONE (12:27)
[2017-05-26] MEDS ORDERED: ROPIVACAINE 0.5% 20 ML VIAL ONE (12:27)
--- NOTE | 2017-05-26 13:11 | Medical Nutrition Therapy ---
Nutrition Anthropometrics Height (Inches): 68.00 Height (Calculated Centimeters: 172.376774 Weight (Pounds): 181 Weight (Calculated Kilograms): 82.355 BMI Calculated: 27.52 Michael Nutrition Score: Adequate Michael Nutrition Risk Score: 17 Dietary Referral Nutrition Risk Factors: Nutrition Risk Comment: Physical Findings Physical Appearance: Overweight BMI 25-29 Skin Appearance Skin Appearance: Edema Edema Location Modifier: Both Edema Location: abdominal Type of Edema: Degree of Edema: 3+ Gastrointestinal Symptoms GI Symtoms: Tube Present: Bowel Sounds: Recent Bowel Pattern: Stool Characteristics: Nutritional Diagnosis Nutritional Risk Acuity 2: Liver Cirrhosis Nutritional Risk Acuity 3: Alcohol abuse Past Medical History: hyperlipidemia, enlarged heart, reflux, liver disease, hypothyroidism, A. fib, dermatitis, alcohol use, pacemaker, appendectomy. Nutritional Acuity: 2-Moderate Nutrition Diagnosis: Excessive Alcohol Intake Nutrition Etiology: Alcohol Addiction Nutrition Problem/Etiology/Sym: Excessive alcohol intake r/t alcohol addiction AEB alcoholic liver cirrhosis and ascites. Energy Requirement: 2120 ([place] St Jeor) Protein Requirement: 99 (1.2 g/kg (liver cirrhosis)) Fluid Requirement: 2120 (25 ml/kg) Diet Type: NPO (Nothing by Mouth) Nutrition Intervention: Incr diet as tolerated Nutrition Monitoring & Eval RD Patient Assessment Time: [address] Assessment Type: RD Assessment Patient Nutrition Acuity: 2-Moderate Follow Up Date: May 29, 2017 Nutritional Comment: 05/25 Pt admitted for worsening ascites due to alcoholic cirrhosis of the liver. Pt has end stage liver disease and will most likely go into hospice. Pt was DENI yesterday and had 25% of dinner. Pt is now NPO for abd CT and peritoneal catheter placement for possible fluid removal. Notable labs include low H/H, Na 116, Ast 78, total pro 6.2, and alb 2.3. Pt is taking K+ depleting diuretic. K+ WNL. Will encourage intake as diet progresses and continue to monitor. 05/26 Pt continues NPO for peritoneal catheter placement this afternoon. K+ depleting diuretic discontinued. Notable labs include low H/H, Na 117, alb 2.4, total pro 6, and BUN 34. Will continue to monitor intake, labs, etc. as diet advances. ARMEN AGOSTO May 26, 2017 08:25
[2017-05-26] MEDS ORDERED: fentaNYL CITR 100 MCG/2 ML AMP ONE (14:21)
--- NOTE | 2017-05-26 15:20 | Post Operative Progress Note ---
Post Operative Progress Note Date: May 26, 2017 Time: 15:12 Surgeon: Jaime Dictation number: [id number] Anesthesia: TIVA by Dr. West Pre-Op Diagnosis: End-Stage Liver Failure due to Alcoholic Cirrhosis with severe ascites Post-Op Diagnosis: JULIAN Findings: C/W dx 6L of clear yellow ascites fluid removed Procedure(s): In-dwelling tunneled peritoneal catheter placement Specimen Removed:(May be N/A): None Complications: None Fluids: See anesthesia record Estimated Blood Loss: Minimal Date OP Note Dictated: May 26, 2017 Time OP Note Dictated: 15:14 BESSY ARNOLD MD May 26, 2017 15:20
[2017-05-26] MEDS ORDERED: NS(*) 0.9% 1000 ML BAG 1,000 ML IV PRN (16:30)
[2017-05-26] MEDS ORDERED: IV BOLUS 500 ML IVSOL IV ONE (16:30)
[2017-05-26] MEDS ORDERED: ALBUMIN HUMAN 5% 250 ML BTL 250 ML IVPB ONE (17:00)
--- NOTE | 2017-05-26 20:21 | OPERATIVE REPORT 1 ---
EVENT DATE: May 26, 2017 SURGEON: Ethan Sandoval MD ANESTHESIOLOGIST: Chai West MD ANESTHESIA: TIVA PREOPERATIVE DIAGNOSIS End-stage liver failure due to alcoholic cirrhosis with severe ascites. POSTOPERATIVE DIAGNOSIS End-stage liver failure due to alcoholic cirrhosis with severe ascites. PROCEDURE PERFORMED Indwelling tunnel peritoneal catheter placement. COMPLICATIONS None. CONDITION Stable. BLOOD LOSS Minimal. INDICATIONS This is a 56-year-old gentleman who was admitted to the hospitalist service with severe ascites. He just had a paracentesis several days prior to admission , but it had rapidly reaccumulated. He is in end-stage liver failure, and I have been asked to place an indwelling peritoneal catheter to facilitate recurring drainage of his ascites without repeat attacks. He is being made hospice, and so this will facilitate his comfort. DESCRIPTION OF PROCEDURE The patient was brought to the operating room and placed supine on the operating table. TIV anesthesia was administered, and his abdomen was prepped and draped in a sterile fashion. I then anesthetized the skin in the right upper quadrant in the mid clavicular line about 10 cm below the costal margin and then used the access needle and aspirated ascitic fluid into a syringe. I removed the syringe and threaded a wire through the access needle. I then removed the needle and then used the dilators and progressively dilated up a track into the peritoneal cavity. I then placed the sheath through the track and removed the dilators and the wire. I then made an incision about 10 cm caudad to the first incision and then pulled the catheter from the inferior incision up to the superior incision so that the tissue ingrowth cuff was about 1 cm from the incision. I then removed the tunneler and threaded the catheter through the sheath and removed the sheath. I then closed the incision in the right upper quadrant with a single 4-0 Monocryl subcuticular suture. I secured the catheter to the skin with 0 silk sutures. I then removed the stylette from inside the catheter and then hooked the little valve up to the catheter as well as the suction adapter. I then sucked out 6 L of ascitic fluid. There was more to be removed, but I did not feel comfortable removing more, and his belly was much softer and flat after this was done. I removed the adapter and then placed a Steri-Strip over the superior incision, followed by a sterile surgical dressing. I then placed a drain sponge around the exit site for the drain, curled it up on the drain sponge, placed the gauze over this, and then dressed this entire area with Tegaderm. He was then transported to the recovery room in stable condition having tolerated the procedure without any apparent problems. BELINDA
[2017-05-26] MEDS ORDERED: PROMETHAZINE 25 MG/ML 1 ML AMP IVP ONE (22:45)
[2017-05-27] VITALS (25 sets, daily range): BP systolic 75–105; BP diastolic 35–63
[2017-05-27] MEDS: LEVOTHYROXINE SOD 0.025 MG TAB PO SCH (06:34)
--- NOTE | 2017-05-27 08:38 | Hospitalist Depart ---
Discharge Summary Reason for Hosp/Final Diag: (1) Alcoholic cirrhosis of liver Status: Acute Hospital Course & Plan: He does have end stage liver disease. His bilirubin remains elevated and his ascitic fluid returned after only a few days since his last paracentesis. He does express understanding about his advanced disease and that there are not many treatment options available. At this point, he would like to have comfort measures and will transfer to inpatient hospice. (2) Ascites Status: Acute Hospital Course & Plan: Dr. Sandoval has placed a catheter to facilitate paracentesis as needed. (3) Hyponatremia Status: Acute Hospital Course & Plan: Secondary to cirrhosis and diuretics. His diuretics have been discontinued. (4) Leukocytosis Status: Acute Hospital Course & Plan: He does have an increasing WBC, but no symptoms of localized infection. He does not have abdominal tenderness that would be consistent with bacterial peritonitis. Departure Latest Vital Signs Vital Signs 05/26/17 05/27/17 23:48 06:00 Temp 97.7 Resp 20 B/P (MAP) 89/53 (65) Pulse Ox 95 O2 Delivery Nasal Cannula O2 Flow Rate 2.0 Weight (Pounds): 181 Weight (Ounces): 9.0 Result Diagram: 05/26/1753005/26/17530 Condition: Improved Discharge: Hospice Discharge Code Status: DNR, DNI Discharge Instructions Home Meds Active Scripts Lactulose (LACTULOSE) 10 Gm/15 Ml Solution, 20 GM PO DAILY, #1 BOTTLE Prov:DEEPTI BARTHOLOMEW MD 05/13/17 Reported Medications Pantoprazole Sodium (PANTOPRAZOLE SODIUM) 40 Mg Tablet., 1 TAB QDAY 05/24/17 Levothyroxine Sodium (LEVOTHYROXINE SODIUM) 25 Mcg Tablet, 25 MCG PO QDAY 05/07/17 Discontinued Reported Medications Aspirin (ASPIR 81) 81 Mg Tablet.dr, 81 MG PO QDAY, TAB 05/07/17 Pantoprazole Sodium (PANTOPRAZOLE SODIUM) 40 Mg Tablet.dr, 40 MG PO QDAY, TAB.SR 05/07/17 Discontinued Scripts Furosemide (FUROSEMIDE) 40 Mg Tablet, 40 MG PO QDAY, #15 Prov:DEEPTI BARTHOLOMEW MD 05/13/17 Spironolactone (SPIRONOLACTONE) 25 Mg Tablet, 100 MG PO QDAY, #60 Prov:DEEPTI BARTHOLOMEW MD 05/13/17 Cephalexin Monohydrate (CEPHALEXIN) 500 Mg Cap, 500 MG PO QID, #8 CAP Prov:DEEPTI BARTHOLOMEW MD 05/13/17 Diet: Regular Activity: As Tolerated Copies to: JEAN CARLOS SALAZAR APRN CLAMP REMOVER-C Venous Thromboembolism Antithrombotics Is Pt On Any Antithrombotics?: No Problem Qualifiers (1) Alcoholic cirrhosis of liver: Ascites presence: with ascites Qualified Codes: K70.31 - Alcoholic cirrhosis of liver with ascites (2) Ascites: Ascites type: due to alcoholic cirrhosis Qualified Codes: K70.31 - Alcoholic cirrhosis of liver with ascites BESSY HERNANDEZ DO May 27, 2017 08:38
[2017-05-27] MEDS: PANTOPRAZOLE SOD 40 MG TABEC PO SCH (09:00)
[2017-05-27] MEDS ORDERED: INFLUENZA VIRUS VAC 0.5 ML SYR IM ONLY ONE (09:00)
[2017-05-27] MEDS ORDERED: MORP100S32 PO (11:57)
== END 2017-05-27 10:18 | disposition hospice, inpatient (51) | DRG 433 ==
LOC: OBSVTOIN 14:43 → MED 14:43
PROVIDERS: ADMIT Family Medicine; ATTEND Family Medicine
PROC: 0W9G30Z Drainage of Peritoneal Cavity with Drainage Device, Percutaneous Approach (ICD-10-PCS; principal; 2017-05-26 14:17)
DX: K70.31 Alcoholic cirrhosis of liver with ascites (principal); E87.1 Hypo-osmolality and hyponatremia; F10.288 Alcohol dependence with other alcohol-induced disorder; K72.90 Hepatic failure, unspecified without coma; D72.829 Elevated white blood cell count, unspecified; I44.7 Left bundle-branch block, unspecified; I25.10 Atherosclerotic heart disease of native coronary artery without angina pectoris; I50.9 Heart failure, unspecified; F17.210 Nicotine dependence, cigarettes, uncomplicated; E78.5 Hyperlipidemia, unspecified; Z51.5 Encounter for palliative care; Z79.82 Long term (current) use of aspirin; Z95.0 Presence of cardiac pacemaker
CPT/HCPCS: 36415; 71046; 74176; 81001; 82040; 82140; 82247; 82310; 82374; 82435; 82565; 82947; 83605; 84075; 84132; 84155; 84295; 84450; 84460; 84520; 85025; 85610; 87040; J2001; J2270; J2550; J2704; J2795; J3010; J7030; P9045

== ENCOUNTER → 2017-05-24 | Outpatient (CLI) | payer MEDICARE ==
[2017-05-07 20:35] VITALS: BMI 30.7
[~2017-05-24] MED LIST changes: +PANT40TA65
[2017-05-24 12:29] LABS: PLATELET COUNT, AUTOMATED 246 K/uL (150-450)
[2017-05-24 12:35] LABS: INR 1.62
--- NOTE | 2017-05-24 13:48 | RADIOLOGY IMAGING REPORT ---
FACILITY: [facility] [place] PATIENT NAME: Manuel Peters : 1960 MR: [id number] V: [id number] EXAM DATE: ORDERING PHYSICIAN: JEAN CARLOS SALAZAR TECHNOLOGIST: Location: [facility] Patient: Manuel Peters : 1960 Visit/Account:[id number] Date of Sevice: 05/24/2017 Exam type: CHEST PA AND LAT History: wheezing, tachypnea Comparison: May 07, 2017. Findings: The lungs are free of acute effusions, infiltrates or edema. The small band of platelike atelectasis the right midlung field. The cardiac silhouette is normal in size. There is a pacemaker/AICD devic e IMPRESSION: 1. No acute heart pulmonary process seen other than a small band of platelike atelectasis the right midlung field Report Dictated By: Maura Oates MD at 05/24/2017 1:42 PM Report E-Signed By: Maura Oates MD at 05/24/2017 1:44 PM WSN:[email or web address]
== END ==
LOC: LAB 11:37
PROVIDERS: ATTEND Nurse Practitioner Family
DX: D72.829 Elevated white blood cell count, unspecified (principal); R06.02 Shortness of breath; R06.82 Tachypnea, not elsewhere classified; R18.8 Other ascites; E87.70 Fluid overload, unspecified; N39.0 Urinary tract infection, site not specified; K70.30 Alcoholic cirrhosis of liver without ascites
CPT/HCPCS: 36415; 71046; 81001; 82040; 82140; 82247; 82310; 82374; 82435; 82565; 82947; 83605; 84075; 84132; 84155; 84295; 84450; 84460; 84520; 85025; 85610; 87040

== ENCOUNTER → 2017-05-27 | Outpatient (CLI) | payer MEDICARE, OTHER ==
[2017-05-25 08:27] VITALS: BMI 27.5
[~2017-05-27] MED LIST changes: +MORP100S32 PO; +PANT40TA65
== END ==
LOC: AMB 09:59
PROVIDERS: ATTEND Nurse Practitioner
DX: K74.60 Unspecified cirrhosis of liver (principal); R18.8 Other ascites
CPT/HCPCS: A0425; A0426